=== PATIENT | male | born 1945 | race Caucasian/White ===

== ENCOUNTER 2017-06-26 14:52 | Inpatient (IN) | payer MEDICARE ==
[~2017-06-26] VITALS: Ht 177.8 cm; Wt 89.1 kg
--- NOTE | ~2017-06-26 | PR ---
[place], [place] PROGRESS NOTE NAME: CATALINA RUIZ UNIT #: [id number] ROOM: 521 DOCTOR: AMRIT FERRERA MD BIRTHDATE: [birth year] DOS: 07/03/2017 REASON FOR VISIT: Abnormal EKG and left bundle block office. HISTORY OF PRESENT ILLNESS: The patient denies any chest pain, shortness of breath. He is ambulating without much difficulty. He denies any PND or orthopnea. No chest pain, no palpitation, no dizziness. REVIEW OF SYSTEMS: Review of the 8 systems negative except as mentioned above. RHYTHM STRIPS: The patient is in sinus rhythm. PHYSICAL EXAMINATION: VITAL SIGNS: Blood pressure 120/68, pulse was 88, respiratory rate was 18. GENERAL: The patient was alert, comfortable, in no acute distress. The patient was seen in the stress lab. HEAD AND NECK: Pupils round, equal. No jaundice. NECK: Supple. No distended neck veins, no carotid bruit. CHEST: Symmetrical, nontender. LUNGS: Clear to auscultation bilaterally. HEART: Regular rhythm, no S3. Grade 1/6 systolic murmur. ABDOMEN: Benign, nontender. Bowel sounds normal. EXTREMITIES: Showed trace edema. Distal pulses were palpable. SKIN: Warm and dry. No cyanosis, no clubbing. MEDICATIONS: Reviewed. LABORATORY DATA: Reviewed. IMPRESSION: 1. Intermittent left bundle branch block, stable. 2. Pneumonia with sepsis, stable. 3. Acute renal failure, improving. 4. Nonmorbid obesity. RECOMMENDATIONS: 1. Continue current medications. 2. Lexiscan stress today to rule out ischemia. 3. Further recommendation based on the stress test. [place], [place] PROGRESS NOTE NAME: CATALINA RUIZ UNIT #: [id number] ROOM: 521 DOCTOR: AMRIT FERRERA MD BIRTHDATE: [birth year] AMRIT FERRERA MD CM:PNTRANS [phone] AMRIT FERRERA MD 07/04/17 1055 interface
--- NOTE | ~2017-06-26 | PR ---
[place], [place] PROGRESS NOTE NAME: [facility]UIZ [id number] UNIT #: [id number] ROOM: 521 DOCTOR: PARIS CABRERA MD,ANNE-MARIE BIRTHDATE: [birth year] DOS: 07/02/2017 SUBJECTIVE: The patient noted comfortable at this time, transferred to medical floor from the intensive care unit. This morning was noted fully awake and alert, resting on the chair. He has been getting oxygen supplementation with a high flow nasal cannula. Denies symptoms of chest pain or hemoptysis. The patient was noted with mild edema of lower extremities. There was no pain of the lower extremities. General weakness and fatigue was noted. Ambulation noted limited. Remaining systems were reviewed. They were noted all negative. OBJECTIVE: GENERAL: The patient was comfortably sitting on the chair this morning. Oxygen supplementation 6 liters high flow nasal cannula was used. VITAL SIGNS: The patient showed normal temperature, respiratory rate 20, heart rate 82, blood pressure 140/68. Pulse oxygen saturation of the patient noted as 96% saturation on 6 liter high flow nasal cannula. HEENT: Showed moderate obesity. Head was atraumatic. Eye nonicterus. NECK: Supple. CARDIOVASCULAR: S1, S2 audible. LUNGS: The patient was noted without any wheezing at the present time. Breaths are noted mildly decreased bilaterally. ABDOMEN: Soft, nontender. EXTREMITIES: The patient noted without any acute edema. MUSCULOSKELETAL: Noted without any acute deformities. SKIN: Noted without any lesions or rashes. CENTRAL NEROUS SYSTEM: General weakness noted, but there were no gross focal deficits. LABORATORY DATA: CBC this morning, hemoglobin 12.0, hematocrit 38.0. WBC count normal, platelet count was normal. The BMP of patient this morning, BUN normal, creatinine normal. CO2 of 34. Blood culture of the patient noted no bacterial growths. The culture of the bronchial washing were noted moderate growth of yeast. IMPRESSION: 1. Acute bilateral pneumonia, responding to the treatment very well at this time. 2. Acute severe hypoxic respiratory failure as well. 3. Overall debility secondary to current acute illness. Change in mental status has been resolved. 4. Suspicion of obstructive sleep apnea disorder, current body habitus as well. PLAN OF TREATMENT: Continue antibiotic as directed by the Infectious Disease specialist. De-escalation of antibiotic of the patient will be continued. The patient's Zyvox was discontinued, currently receiving the IV Levaquin and Zosyn. The Levaquin could be discontinued as well based on the current growth results. All other supportive therapy, plan of management and care plan. Additional treatment changes to be done based on the progression of his illness. Physical [place], [place] PROGRESS NOTE NAME: CATALINA RUIZ UNIT #: [id number] ROOM: 521 DOCTOR: ANNE-MARIE GARNER MD BIRTHDATE: [birth year] therapy would be beneficial. NANE-MARIE TOLEDO MD CM:PNLISSY [id number] ANNE-MARIE CABRERA MD 07/02/17 1624 interface
--- NOTE | ~2017-06-26 | PR ---
[place], [place] PROGRESS NOTE NAME: CATALINA RUIZ [facility] #: [id number] UNIT #: [id number] ROOM: 404 DOCTOR: PARIS CABRERA MD,ANNE-MARIE BIRTHDATE: [birth year] DOS: 06/28/2017 SUBJECTIVE: The patient noted without any acute distress at this time, comfortably resting on the bed. Denies any symptoms of acute coughing, chest pain or hemoptysis. Denies symptoms of abdominal pain. Denies symptoms of nausea or vomiting. Denies any headache or diplopia. Remaining systems were reviewed. They were noted all negative. OBJECTIVE: VITAL SIGNS: Normal temperature, respiratory rate 18, heart rate 69, blood pressure 126/65. Intake of 1300, output 200 mL/hour recorded without Solis catheter. Pulse oxygen saturation with 2 liters nasal cannula for the patient was noted as 93% this morning. HEAD, EYES, EARS, NOSE, AND THROAT: Moderate chronic obesity. NECK: Supple, short and obese. CARDIOVASCULAR: S1, S2 audible. LUNGS: Scattered crackles of the lungs was noted. It was noted bilaterally. ABDOMEN: Soft, nontender. EXTREMITIES: Without any acute edema. Chronic obesity. SKIN: No lesions or rashes. MUSCULOSKELETAL SYMPTOM: Without any acute deformities. CENTRAL NEROUS SYSTEM: No focal deficit. Cranial nerves 2-12 intact. LABORATORY DATA: CBC repeated this morning, WBC count 16.9, hemoglobin 13.1, hematocrit 42.1, and platelet count 123,000. The BMP this morning, BUN 26, creatinine normal, glucose 141. Remaining electrolytes normal. Blood culture of this month showed no bacterial growth. Modified barium swallow study was completed yesterday was noted as normal study. The echocardiogram was also done yesterday assessed by Dr. Bob. The finding with the patient was reported as normal left ventricular segmental wall motion, mild concentric LVH, grade 2 diastolic dysfunction. Chest x-ray of the patient that was done this morning, PA lateral as ordered shows bilateral pulmonary infiltration. The patient was noted stable without any worsening. IMPRESSION: 1. Acute multifocal aspiration pneumonia, which has been currently treated with the antibiotic seem to be stable. 2. History of chronic alcohol use. 3. Chronic obesity. 4. Leukocytosis secondary to the current acute active infection. PLAN OF MANAGEMENT: Continuation of the current antibiotics, bronchodilators and oxygen supplementation. Monitor chest x-ray. Continue bronchodilator to help mobilize secretions. Sputum for Gram stain and culture able to ____ could be assessed. Other supportive therapy, plan of management and care plan. Additional treatment changes need to be made for the patient based on the progression of the illness. The chest x-ray repeated the next couple of days again to reassess the assessment of the current progression of the pulmonary infiltration. [place], [place] PROGRESS NOTE NAME: CATALINA RUIZ [id number] UNIT #: [id number] ROOM: [facility] DOCTOR: ANNE-MARIE GARNER MD BIRTHDATE: [birth year] ANNE-MARIE TOLEDO MD CM:PNTRANS [phone] ANNE-MARIE CABRERA MD 06/28/171931 interface
--- NOTE | ~2017-06-26 | PR ---
[place], [place] PROGRESS NOTE NAME: CATALINA RUIZ [facility] #: [id number] UNIT #: [id number] ROOM: 521 DOCTOR: TRAV GOMEZ DO BIRTHDATE: [birth year] DOS: 07/06/2017 SUBJECTIVE: The patient was seen and evaluated today. He is standing with his walker, doing exercises and marching in place. He states he is feeling very well and is not having any respiratory issues. He exhibits no conversational dyspnea or any dyspnea while exerting himself. He is still requiring 7-8 liters via high flow nasal cannula and his pulse ox at the time of these exercises is 88-89%. He denies any chest pain, lightheadedness, dizziness, nausea, vomiting, diarrhea, constipation or any other symptoms at this time. At the time of exam, he himself is still agreeable to SNF placement. OBJECTIVE: VITAL SIGNS: At time of exam, temperature 97.9, pulse 76, respiratory rate 18, blood pressure 123/75 and pulse ox 92% on high flow nasal cannula at 7.5 liters per minute. GENERAL: Alert, awake, in no acute distress, cooperative and responsive. HEAD: Normocephalic, atraumatic. EYES: No lesions. No ulcerations. Nonicteric. No drainage. ENT: No lesions. No scars. No masses. Nares patent. Oropharynx clear. Oral mucosa moist. NECK: Without lesions, without masses. No ulcerations. Trachea midline. LUNGS: No respiratory distress. No dyspnea on exertion. No shortness of breath. No conversational dyspnea. Lung sounds clear with no wheezing, no rhonchi, no rales appreciated today. Slightly diminished in the left lower lobe. CARDIAC: Regular rate and rhythm. No gallop. No murmur. No edema in lower extremities. ABDOMEN: Soft, positive bowel sounds, nontender, nondistended. No organomegaly appreciated. EXTREMITIES: No clubbing. No cyanosis. No erythema. No edema. NEUROLOGIC: Grossly intact without focal neuro deficit. Sensation grossly intact. Ambulates with assistance of a walker. PSYCHIATRIC: Exhibits normal mood, normal affect. Fair Judgment and insight. Fair historian. SKIN: Warm and dry. No rash. No ulceration. No induration. No nodules. No tightening. Healing stage I decubital ulcer noted to the coccyx with bandage clean, dry and intact. LABORATORY AND DIAGNOSTIC DATA: A chest x-ray taken yesterday morning shows COPD and left lower lobe pneumonia. IMPRESSION: 1. Resolving pneumonia. 2. Improving acute severe hypoxic respiratory failure, status post intubation and mechanical ventilation with liberation from mechanical ventilation. 3. Overall physical debility. 4. Acute renal failure, resolved at this time. 5. Chronic obstructive pulmonary disease. 6. Essential hypertension. 7. Alcohol abuse. [place], [place] PROGRESS NOTE NAME: CATALINA RUIZ UNIT #: [id number] ROOM: 521 DOCTOR: TRAV GOMEZ DO BIRTHDATE: [birth year] PLAN OF TREATMENT: Continue to titrate oxygen requirements as tolerated. The patient was still agreeable with SNF placement at the time of exam; however, his family is less convinced and wants to take him home. However, Dr. Toledo spoke with the patient's daughter and explained to her that it is not safe for the patient to return home at this time as he is still requiring high quantities of high flow oxygen via nasal cannula and still has a resolving pneumonia. We will continue the use of IV Levaquin for the resolving pneumonia as well as DuoNeb breathing treatment and other respiratory medications. The option has also been brought by family of possible transfer of the patient to a different facility in [place], so he can be closer to them and Dr. Toledo is in agreement with this option if the family is insistent upon it. TRAV GOMEZ DO ANNE-MARIE TOLEDO MD CM:LENY [phone] [id number] TRAV GOMEZ DO 07/06/172002 interface
--- NOTE | ~2017-06-26 | PR ---
[place], [place] PROGRESS NOTE NAME: CATALINA RUIZ [facility] #: [id number] UNIT #: [id number] ROOM: [place] [address] DOCTOR: PARIS CABRERA MD,ANNE-MARIE BIRTHDATE: [birth year] DOS: 06/30/2017 SUBJECTIVE: The patient was seen and examined in 06/30/2017 in the Intensive Care Unit. He has been tolerating the BiPAP since last night, which has been continued. He was getting oxygen supplementation other time. The temperature noted elevated at 100.5-degree Fahrenheit to normal temperature. The patient has not been noted evidence of tachycardia, did not show any signs of hypotension requiring any vasopressor treatment. The oral intake for the patient was noted somewhat limited for the patient. He has been continued on intravenous antibiotic with continuous infusion of intravenous Zosyn and doxycycline intravenously started as well. The patient responded to vocal commands, opening his eyes. Two of the daughters were present with the patient at this time of assessment. The patient is n.p.o. past midnight for bronchoscopy was planned to be done today. OBJECTIVE: VITAL SIGNS: The patient shows a highest temperature of 100.5 degree Fahrenheit, normal temperature otherwise, respiratory rate of highest of 30, lowest of 22. The heart rate ranged between 60-70 and blood pressure 145/80-132/66. Intake is 1077 mL, output 726 mL. Pulse ox saturation BiPAP 60%, 97% saturation with a Venturi mask 90% saturation, 50% oxygen. HEENT: Chronic obesity. NECK: Supple. Head was atraumatic. CARDIOVASCULAR: S1, S2 audible. LUNGS: The patient was noted with moderate decreased breath sounds, scattered crackles, no wheezing. ABDOMEN: Soft. Moderate obesity. Bowel sounds present. EXTREMITIES: Noted with obesity without any edema. SKIN: Visible skin, no lesions or rashes. MUSCULOSKELETAL SYMPTOMS: Without acute deformities. CENTRAL NERVOUS SYSTEM: Change was still noted intermittently. LABORATORY DATA: Arterial blood gas yesterday, pH of 7.33, pCO2 of 58.9, pO2 of 83 and 60% oxygen, BiPAP setting of 16/10. CMP this morning, glucose 122, BUN normal, creatinine was normal. CO2 34, albumin 2.3, total protein 5.8. CBC this morning, WBC count 13.2, hemoglobin 12.7, hematocrit 39.9, platelet count 120,000. Chest x-ray of the patient that was done this morning shows evidence of infiltration noted for this patient in the left lower lobe with increased pulmonary venous congestion markings. IMPRESSION: 1. The patient has been noted with current acute respiratory failure for this patient secondary to acute pneumonia with hospital-associated infection. 2. Mild anemia. 3. History of long-term alcohol use for the patient. Possible withdrawal cannot be completely considered rather excluded. 4. Pulmonary venous congestion may be related to fluid overload as well. There was no finding of congestive heart failure. 5. History of chronic obesity as well. 6. Mild thrombocytopenia. [place], [place] PROGRESS NOTE NAME: CATALINA RUIZ UNIT #: [id number] ROOM: [place] [address] DOCTOR: ANNE-MARIE GARNER MD BIRTHDATE: [birth year] PLAN OF THERAPY: Continuation of the antibiotics for the patient at the present time. The patient's antibiotic has been changed by addition of the Levaquin and the patient was also started on Zyvox by the Infectious disease specialist. The patient will be continued on current antibiotic, proceed with bronchoscopy for the patient for more accurate culture assessment to deescalate the antibiotics. Continue the BiPAP. One dose of Lasix will be given 20 mg intravenously to help improve the pulmonary venous congestion. Close monitoring to be continued. The patient does not require mechanical ventilation at this time. Nutrition support will be given. The patient started Librium to prevent alcohol withdrawal or delirium tremens if it occurs. Usual care. All other supportive therapy, plan of management and care plan. Additional treatment changes to be made for this patient after bronchoscopy if necessary, overall assessment, management has been discussed in detail with the patient's daughters at the bedside. Continuation in the meantime, other supportive therapy, plan of management. Repeat another chest x-ray in the morning. DVT prophylaxis with the SCDs. The patient was also noted with mild thrombocytopenia most likely related to current sepsis. The patient will be monitored closely. No changes at this time will be made. Total time in pulmonary critical care evaluation and management of the patient excluding any billable procedures is 35 minutes. ANNE-MARIE TOLEDO MD CM:PNTRANS [phone] ANNE-MARIE CABRERA MD 06/30/17 1756 interface
--- NOTE | ~2017-06-26 | PR ---
[place], [place] PROGRESS NOTE NAME: CATALINA RUIZ [facility] #: [id number] UNIT #: [id number] ROOM: 521 DOCTOR: PARIS CABRERA MD,ANNE-MARIE BIRTHDATE: [birth year] DOS: 07/03/2017 SUBJECTIVE: The patient was noted comfortable at this time without any acute distress. He has been sitting on the chair this morning at the time of the assessment. He has not been noted with symptoms of acute shortness of breath. The coughing has been gradually subsiding. There were no symptoms of chest pain or any abdominal pain. The patient denies symptoms of nausea, vomiting, diarrhea, dysphagia, hematemesis, melena, dizziness, or headache. Reported generalized weakness and fatigue. Remaining systems were reviewed and noted as negative. OBJECTIVE: VITAL SIGNS: For the patient, noted as temperature normal, respiratory rate 22, heart rate 64, blood pressure 151/73. Pulse oxygen saturation of the patient noted as 98% with the BiPAP and 97% with 8 liters high-flow nasal cannula. HEENT: Examination shows head was atraumatic. Eyes nonicterus. NECK: Supple. CARDIOVASCULAR: S1, S2 are audible. LUNGS: The patient was noted without any wheezing or crackles at this time. Breaths are noted to be decreased in the lower portion of the lungs. ABDOMEN: Soft, nontender. EXTREMITIES: The patient noted without any acute edema. SKIN: Visible skin noted without lesions or rashes. MUSCULOSKELETAL: Noted without any acute deformities. CENTRAL NERVOUS SYSTEM: No focal deficit. Cranial nerves 2-12 intact. LABORATORY DATA: Adenovirus on this patient were noted with elevated titers. Mycoplasma IgM were noted as normal. IgE mildly elevated consistent with previous old infection. CMP of the patient that was done this morning shows carbon dioxide 36. Albumin of 2.0. CBC of the patient this morning was noted as normal WBC count and platelet count, hemoglobin 12.3, hematocrit 39.2. IMPRESSION: 1. The patient who has been currently noted with resolving acute pneumonia clinically and radiologically as well with improving acute respiratory failure, still requires the oxygen supplementation with high flow nasal cannula and BiPAP use as well. 2. Severe debility secondary to current infection. 3. Adenovirus isolation from the nasopharyngeal washing of the patient was also noted. PLAN OF TREATMENT: The patient will be continued with oxygen supplementation, physical therapy and occupation therapy as well. Possible consideration should be given for either long-term acute care facility or fci facility consultation upon discharge. I will be ordering a chest x-ray of the patient, PA and lateral view of the patient to reassess the progression of the pneumonia. Other supportive therapy, plan and management to be continued on the patient as previously as well. Usual treatment, all other plan of therapy and treatments. [place], [place] PROGRESS NOTE NAME: JOSEPHCATALINA Myrna [facility] #: [id number] UNIT #: [id number] ROOM: 521 DOCTOR: ANNE-MARIE GARNER MD BIRTHDATE: [birth year] ANNE-MARIE TOLEDO MD CM:PNTRANS [phone] ANNE-MARIE CABRERA MD 07/04/17222 interface
--- NOTE | ~2017-06-26 | PR ---
[place], [place] PROGRESS NOTE NAME: CATALINA RUIZ [facility] #: [id number] UNIT #: [id number] ROOM: 521 DOCTOR: PARIS CABRERA MD,ANNE-MARIE BIRTHDATE: [birth year] DOS: 07/04/2017 SUBJECTIVE: The patient was noted at this time using the BiPAP, still requires high flow of oxygen supplementation nasal cannula. The patient has not been reporting any symptoms of chest pain or hemoptysis. The mental status has been noted controlled for the patient as well. He had not been noted any symptoms of abdominal pain. There was no edema or pain of the lower extremities were reported. Remaining system review was noted as all negative. OBJECTIVE: VITAL SIGNS: The patient was recorded as temperature normal, respiratory rate 18-20, heart rate of 79-58, blood pressure 150/83 to 155/79. The pulse oxygen saturation on high flow nasal cannula for the patient 92% BiPAP, 97% with 50% oxygen supplementation. The patient was comfortably resting on the bed at this time. HEENT: Chronic obesity. NECK: Supple. CARDIOVASCULAR: S1, S2 audible. LUNGS: Noted general reduction in the breath sounds without wheeze or crackles. ABDOMEN: Soft and obese. EXTREMITIES: The patient noted with chronic obesity, mild edema. SKIN: No lesion or rash. MUSCULOSKELETAL SYMPTOMS: Without any gross deformities. LABORATORY DATA: The patient's CMP today, normal BUN and creatinine, potassium 3.4. Blood culture from the 29th of this month showed no bacterial growth. CBC of the patient on 07/04/2017, hemoglobin 12.5. WBC count normal. Platelet count was normal. IMPRESSION: 1. Stable respiratory status. The patient noted at this time with persistent severe acute hypoxic respiratory failure with acute pneumonia, very slow improvement. The patient still noted ongoing respiratory failure. The patient requires use of the BiPAP and others. 2. The patient with chronic obesity as well. 3. Suspicion of sleep apnea disorder as well. PLAN OF TREATMENT: The patient would be continued at this time with current treatment plan. He was recommended about assessment for long-term acute care facility, snf facility, but the patient refusing to do so. At this time, the patient was not noted fit for discharge either to snf facility or to the home setting. Continued treatment would be needed. [place], [place] PROGRESS NOTE NAME: CATALINA RUIZ UNIT #: [id number] ROOM: 521 DOCTOR: ANNE-MARIE GARNER MD BIRTHDATE: [birth year] ANNE-MARIE TOLEDO MD CM:PNLISSY [phone] ANNE-MARIE CABRERA MD 07/04/171932 interface
--- NOTE | ~2017-06-26 | PR ---
[place], [place] PROGRESS NOTE NAME: CATALINA RUIZ [facility] #: [id number] UNIT #: [id number] ROOM: 521 DOCTOR: CHARLOTTE CRAIG MD BIRTHDATE: [birth year] DOS: 07/10/2017 SUBJECTIVE: The patient was seen at his bedside today 07/10/2017 with family in attendance. He feels well and is very anxious to go home. Unfortunately, he remains on a diltiazem drip. When he is active, his heart rate will go up into the 130s. He seems to do best right after he receives carvedilol by mouth. He denies any chest pain and is able to get around without oxygen. PHYSICAL EXAMINATION: VITAL SIGNS: Today, his pulse is between 90 and 130 and irregularly irregular. Blood pressure is 107/60. He is febrile. NECK: Supple. He has no jugular distention. Carotids are full. LUNGS: Respirations are unlabored. Chest is clear to auscultation and percussion. He has no presacral edema. HEART: Has an irregularly irregular rhythm without murmurs or gallops. ABDOMEN: Benign. EXTREMITIES: Showed no edema. Peripheral pulses are palpable in the feet. I will adjust his carvedilol upwards to try to get a better control on his heart rate response to atrial fibrillation. The patient will continue Xarelto for stroke prophylaxis. I thank the hospitalist physicians for asking our advice regarding his care. CHARLOTTE CRAIG MD CM:PNTRANS [id number] CHARLOTTE CRAIG MD 07/10/17 1636 interface
--- NOTE | ~2017-06-26 | PR ---
[place], [place] PROGRESS NOTE NAME: CATALINA RUIZ UNIT #: [id number] ROOM: 521 DOCTOR: CHARLOTTE CRAIG MD BIRTHDATE: [birth year] DOS: 07/12/2017 SUBJECTIVE: The patient was seen today at his bedside on 07/12/2017. He is feeling much better and is anxious to go home. Review of his monitor shows that his heart rate is relatively well controlled, although he still does have an increase in heart rate when he exerts himself. PHYSICAL EXAMINATION: VITAL SIGNS: His pulse is 95 and irregularly irregular. Blood pressure is 110/62. He is afebrile. NECK: Supple. He has no jugular distention. Carotids are full. LUNGS: Respirations are unlabored. His chest is clear. HEART: Has an irregularly irregular rhythm without murmurs or gallops. ABDOMEN: Benign. EXTREMITIES: Shows trace edema bilaterally. LABORATORY DATA: Hemoglobin is 12.9, hematocrit 39.0. There are 6400 white cells and 260,000 platelets. Sodium 139, potassium 4.1, chloride 104, CO2 27, BUN 11, and creatinine 0.83. IMPRESSION: 1. Bilateral pneumonia, resolving. 2. Hypertension, well controlled. 3. Newly documented atrial fibrillation with rapid ventricular response. 4. History of alcohol abuse prior to admission. 5. Protein and calorie malnutrition. 6. Chronic diastolic heart failure. PLAN: The patient appears to be hemodynamically stable. From my perspective, he could be discharged to home on anticoagulation therapy along with beta blockers for heart rate control. We will follow up with him in the office in several weeks. If he remains in atrial fibrillation and seems to be limited by his arrhythmia, we can discuss with him the possibility of an elective cardioversion at that time. I thank the hospitalist physicians for asking our advice regarding his care. [place], [place] PROGRESS NOTE NAME: CATALINA RUIZ UNIT #: [id number] ROOM: 521 DOCTOR: CHARLOTTE CRAIG MD BIRTHDATE: [birth year] CHARLOTTE CRAIG MD CM:PNTRANS [id number] CHARLOTTE CRAIG MD 07/12/17 1615 interface
--- NOTE | ~2017-06-26 | PR ---
[place], [place] PROGRESS NOTE NAME: CATALINA RUIZ [facility] #: [id number] UNIT #: [id number] ROOM: [place] [address] DOCTOR: PARIS CABRERA MD,ANNE-MARIE BIRTHDATE: [birth year] DOS: 06/29/2017 SUBJECTIVE: The patient was treated on the medical floor. The patient noted with increased hypoxia, change in mental status. He has arterial blood gas, which was ordered by the medical attending. The arterial blood gas was done, which shows worsening hypoxia and also interval development of hypercapnia. The patient was transferred to the Intensive Care Unit. He has not been noted any findings of hypotension or tachycardia. The patient was started on oxygen supplementation high flow with a Venturi mask. The Venturi mask 50% resulted in improvement in oxygen saturation. Mental status has been noted and confusion at times as well. He has not been able to give me any history by himself at this time because of the current change in mental status. The patient had a CT of the chest already completed this morning, which was ordered by the primary care attending. OBJECTIVE: VITAL SIGNS: Reviewed and was noted temperature 100.5 degree Fahrenheit to 97.6 degree Fahrenheit, respiratory rate 20-24, heart rate 88-74, blood pressure 108/59-103/60. Pulse oxygen saturation on 50% Venturi mask was noted as 95%. HEENT: Examination shows head was atraumatic. Eyes nonicterus. Moderate obesity. NECK: Short and obese. CARDIOVASCULAR: S1, S2 audible. LUNGS: Scattered crackles without wheezing. The breaths are noted mildly diminished bilaterally. ABDOMEN: Noted soft, moderate obesity, bowel sounds present. CENTRAL NERVOUS SYSTEM: Noted changes in mental status. Further examination could not be performed. VISIBLE SKIN: No lesions or rashes. MUSCULOSKELETAL SYMPTOMS: Without any acute deformities. LABORATORY DATA: CBC; WBC count 10.5, hemoglobin 15.2, hematocrit normal, platelet count normal. CMP this morning; glucose 120, BUN 23, creatinine was normal, CO2 34. AST 44. Albumin 2.9. Arterial blood gas; pH of 7.28, pCO2 of 66, pO2 56.8 on 50% Venturi mask. PT/PTT done this morning was noted as normal. Chest x-ray shows patchy infiltration noted in the lungs in the right side and some in the left lower lobe as any finding. The CT of the chest does not show any evidence of pulmonary embolism. CT scan of the chest was personally reviewed shows evidence of infiltration noted in the lung on the right side, noted partial reduction, increased infiltration, consolidation noted in the right lower lobe. IMPRESSION: 1. The patient with acute superimposed pneumonia, healthcare-associated infection to be considered, most likely secondary to recurrent aspiration is very likely the cause. 2. Change in mental status secondary to current, acute early sepsis as well. 3. The patient with past history of alcohol use does not seem to have any withdrawal from the alcohol and delirium because of that. 4. Moderate obesity. [place], [place] PROGRESS NOTE NAME: CATALINA RUIZ UNIT #: [id number] ROOM: [place] [address] DOCTOR: ANNE-MARIE GARNER MD BIRTHDATE: [birth year] 5. Previous history of nicotine use as well. PLAN OF MANAGEMENT: The patient has been ordered cultures of the blood to be done peripherally. He will be started on continuous intravenous infusion of the IV Zosyn. The patient was also ordered the doxycycline 100 mg b.i.d. for coverage of the healthcare-associated pneumonia. The patient's arterial blood gas will be monitored. The BiPAP will be tried at settings of 16/10 for this patient. If tolerated, to be continued in case of worsening or deterioration of respiratory status. The patient will require intubation and mechanical ventilation. The bronchoscopy will be planned to be done tomorrow morning for more accurate culture assessment at that time. In the meantime, continue other supportive plan of management of the patient as in progress, usual care, other supportive therapy and care as well. Additional treatment changes to be made for the patient based on the progression of the illness. DVT prophylaxis. Other supportive therapy, plan of management and care plan. Usual medical management and other therapies. The patient has been refusing the subcutaneous Lovenox injection. He will be given the HUY hose with SCDs for DVT mechanical prophylaxis. Total time for pulmonary critical evaluation and management for this patient assessment was 38 minutes. ANNE-MARIE TOLEDO MD CM:PNTRANS [phone] ANNE-MARIE CABRERA MD 06/30/17 0341 interface
--- NOTE | ~2017-06-26 | ST ---
[place], [place] EXERCISE STRESS TEST REPORT [id number] UN[facility] #: [id number] ROOM: 521 DOCTOR: MAISHA WILSON,AMRIT BIRTHDATE: [birth year] DOS: 07/03/2017 REASON FOR TEST: Abnormal EKG and left bundle branch block. PHYSICAL EXAMINATION: NECK: Supple. LUNGS: Clear anteriorly. HEART: Regular rhythm. PROTOCOL: Lexiscan protocol. Maximum heart rate was 92, peak blood pressure 142/78. SYMPTOMS: The patient was chest pain free. ELECTROCARDIOGRAM: Resting EKG was sinus rhythm. Stress EKG showed no ischemia, no arrhythmias. CONCLUSION: Clinically, the patient was chest pain free and there no ischemia on the EKG. The patient received 0.4 mg of Lexiscan. AMRIT FERRERA MD CM:STRESS:EXERCISE STRESS TEST REPORT [id number] AMRIT FERRERA MD
--- NOTE | ~2017-06-26 | PR ---
[place], [place] PROGRESS NOTE NAME: CATALINA RUIZ [facility] #: [id number] UNIT #: [id number] ROOM: 521 DOCTOR: PARIS CABRERA MD,ANNE-MARIE BIRTHDATE: [birth year] DOS: 07/01/2017 PULMONARY FOLLOWUP SUBJECTIVE: The patient noted comfortable at this time, noted fully awake and alert, cooperative with the examination. Speak with the family members. The bronchoscopy was completed yesterday successfully without any difficulty. After bronchoscopy ____ the patient has improved significantly as per daughters of the patient. He has not been noted any chest pain at this time. The coughing has been noted with some sputum expectoration. There was no wheezing reported by the patient. There were symptoms of nausea, vomiting, diarrhea, dizziness. Remaining systems were reviewed, they were noted all negative. OBJECTIVE: VITAL SIGNS: For the temperature remains normal, respiratory rate 22, heart rate 63, blood pressure 94/55-130/83. The pulse oxygen saturation for the patient on the BiPAP 60%, 96% saturation, high flow nasal cannula was 91% saturation this morning. HEENT: Moderate obesity. Head was atraumatic. Eyes nonicterus. NECK: Supple. CARDIOVASCULAR: S1, S2 audible. LUNGS: Basilar crackles still noted. ABDOMEN: Soft, nontender and obese. EXTREMITIES: The patient was noted without any acute edema. MUSCULOSKELETAL SYMPTOMS: Without any acute deformities. SKIN: No lesions or rashes. CENTRAL NERVOUS SYSTEM: Overall weakness, but there were no focal neurologic deficits noted. Normal speech as well. LABORATORY DATA: CMP this morning, BUN normal, creatinine normal, glucose 110, CO2 3.6. Total protein of 6.1, albumin 2.3. The CBC this morning, hemoglobin 12.9, hematocrit 41.2, platelet count 122,000. Chest x-ray of the patient 1 view, which was done today was reviewed. Infiltration noted in the lungs bilaterally. IMPRESSION: 1. Acute pneumonia for this patient at this time. The Gram stain of the bronchial washing shows many white blood cells, moderate yeast and no bacterial growth noted for this patient at this time from the cultures. The blood cultures also remains negative. 2. Resolving acute severe hypoxic respiratory failure with hypercapnia as well. 3. Improving acute exacerbation of chronic obstructive pulmonary disease. 4. Mild thrombocytopenia related to his current acute sepsis. 5. Chronic obesity as well. 6. Improvement in mental status was continued. PLAN OF TREATMENT: Continue monitoring the culture for patient of the bronchial washing as well as of the blood. The patient could be transferred from the intensive care unit to the other floor. Adjustment antibiotic deescalation [place], [place] PROGRESS NOTE NAME: CATALINA RUIZ UNIT #: [id number] ROOM: 521 DOCTOR: PARIS CABRERA MD,ANNE-MARIE BIRTHDATE: [birth year] should be done for this patient after the final culture results availability. Other plan of management. The patient to be continued as in progress. Usual care. All other supportive plan of care and management. Additional treatment changes will be made for the patient based on progression of the illness. Continue optimizing nutrition support. ANNE-MRAIE TOLEDO MD CM:PNTRANS [phone] ANNE-MARIE CABRERA MD 07/02/17 0125 interface
--- NOTE | ~2017-06-26 | PR ---
[place], [place] PROGRESS NOTE NAME: CATALINA RUIZ [facility] #: [id number] UNIT #: [id number] ROOM: 521 DOCTOR: TRAV GOMEZ DO BIRTHDATE: [birth year] DOS: 07/07/2017 SUBJECTIVE: The patient seen and evaluated today. He is sitting in his bedside chair with a family member present, he states he is feeling very well and not in any respiratory distress at this time. He states he has been working well with physical therapy and occupational therapy and is not getting short of breath while exercising. He is still requiring 5-8 liters via high flow nasal cannula and his pulse oxygen saturations are staying in the mid to low 90s. He denies any chest pain, lightheadedness, dizziness, nausea, vomiting, diarrhea, constipation and states he is eating well. OBJECTIVE: VITAL SIGNS: At the time of exam, temperature 97.4, pulse 77, respirations 21, blood pressure 136/66, pulse ox 93% on 5 liters via nasal cannula. GENERAL: Alert, awake, no acute distress, cooperative and responsive. HEAD: Normocephalic, atraumatic. EYES: No lesion, no ulceration, nonicteric, no drainage. ENT: No lesion, no scars, no masses. Nares patent. Oropharynx clear. Oral mucosa moist. NECK: Without lesions, without masses. No ulcerations. Trachea is midline. LUNGS: No respiratory distress. No wheezing, no rales noted, slight diminished rhonchorous sounds in the left lower lobe. CARDIAC: Regular rate and rhythm. No gallop, no murmur. No edema in lower extremities. ABDOMEN: Soft, nontender, nondistended, positive bowel sounds. EXTREMITIES: No clubbing, no cyanosis, no erythema, no edema. NEUROLOGIC: Grossly intact without focal neuro deficits. Sensation grossly intact. PSYCHIATRIC: Exhibits normal mood, normal affect. Fair judgment and insight. Good recent memory. SKIN: Warm and dry. No rash, no ulceration, no induration. There is a stage 1 decubitus ulcer noted to the coccyx. Bandage in place, clean, dry and intact. LABORATORY AND DIAGNOSTIC DATA: Completed gram stain of bronchial washing culture shows many white blood cells and moderate budding yeast, but no bacterial elements. IMPRESSION: 1. Resolving pneumonia, bacterial. 2. Improving acute severe hypoxic respiratory failure, status post intubation and mechanical ventilation with liberation from mechanical ventilator. 3. Overall physical debility. 4. Chronic obstructive pulmonary disease. 5. Acute renal failure, resolved. 6. Alcohol abuse. 7. Essential hypertension. PLAN OF TREATMENT: The patient is cleared from pulmonary standpoint to be discharged to a shelter facility or LTAC for continued treatment of his resolving pneumonia. An ethics consult was placed by the primary team as the [place], [place] PROGRESS NOTE NAME: CATALINA RUIZ UNIT #: [id number] ROOM: 521 DOCTOR: TRAV GOMEZ DO BIRTHDATE: [birth year] patient's family had been refusing continued care in SNF or LTAC facilities. It had been explained to the patient's family several times that the patient is unsafe to be discharged home with the amount of oxygen he is requiring and the amount of care he will need to resolve his pneumonia. The patient is completely competent and able to make his own medical decisions and he is agreeable to shelter facility placement. Upon discharge whenever a shelter facility bed is available, recommend continuing oral Levaquin 750 mg for 7 more days upon discharge. TRAV GOMEZ DO ANNE-MARIE TOLEDO MD CM:LENY [phone] TRAV GOMEZ DO 07/07/17 1849 interface
--- NOTE | ~2017-06-26 | PR ---
[place], [place] PROGRESS NOTE [id number] UN[facility] #: [id number] ROOM: 521 DOCTOR: EMMANUEL EASTON MD BIRTHDATE: [birth year] DOS: 07/03/2017 SUBJECTIVE: The patient is comfortably sitting in the chair. Denies any fever, chills. No shortness of breath, occasional dry cough. No chest pain. Today, he had a stress test done, awaiting the results. REVIEW OF SYSTEMS: Ten point review of system is done. Pertinent negative and positives included in HPI, others are noncontributory. PHYSICAL EXAMINATION: VITAL SIGNS: Temperature 97.9, pulse rate 75, respiratory rate 18, blood pressure 111/53, oxygen saturation 92% on room air. HEENT: Atraumatic, normocephalic. PERRLA. EOMI. RESPIRATORY: Air entry bilaterally equal. Occasional expiratory wheezing, right lung more than the left. Right lower lung crackles at the base, minimal. CARDIOVASCULAR: S1, S2 normal, no murmurs, rubs or gallops. ABDOMEN: Soft, nontender, nondistended. Bowel sounds present all 4 quadrants. EXTREMITIES: No pedal edema. NEUROLOGIC: Grossly intact. LABORATORY DATA AND IMAGING: Noted. ASSESSMENT AND PLAN: 1. Atypical pneumonia are viral illness. At this time, continue levofloxacin to complete 2 weeks' course of antibiotics. Discontinue Zosyn. 2. The patient had a left bundle branch block, underwent a Lexiscan stress test, following up with Cardiology. From an infectious disease point, okay to be discharged on Levaquin 750 daily for 1 more week. Thank you for the consultation, please call if you have any questions. Kami Easton MD CM:PNTRANS [phone] EMMANUEL EASTON MD 07/04/17 0948 interface
--- NOTE | ~2017-06-26 | PR ---
[place], [place] PROGRESS NOTE NAME: CATALINA RUIZ [facility] #: [id number] UNIT #: [id number] ROOM: 521 DOCTOR: PARIS CABRERA MD,ANNE-MARIE BIRTHDATE: [birth year] DOS: 07/07/2017 SUBJECTIVE: The patient was independently seen and examined with [id number] encounter, history was confirmed, physical examination performed, labs reviewed, assessment and management of the patient for today's visit, was personally completed, the note done by the spanish medical interpreter and approved as well. The patient noted comfortable, still requires oxygen supplementation 8 liters nasal cannula difficult to be titrated down lower oxygen. The patient denies symptoms of chest pain or cough. Shortness of breath has been improving. OBJECTIVE: VITAL SIGNS: For the patient reported as normal temperature, respiratory rate 22, heart rate 71, blood pressure 132/56, pulse oxygen saturation on 5 to 8 L nasal cannula ranges between 93-98% saturation. HEENT: Moderate obesity. NECK: Supple. CARDIOVASCULAR: S1, S2 audible. LUNGS: Noted decreased breath sounds in the lungs bilaterally. There were no wheezing, no crackles. ABDOMEN: Soft, nontender. EXTREMITIES: Without any acute edema. IMPRESSION: The patient has stable respiratory status, resolving acute pneumonia for this patient with current medical management. A slow improvement for the patient was noted in the severe hypoxic respiratory failure, did require the oxygen between 5-8 liters high flow nasal cannula at rest. PLAN OF MANAGEMENT: The patient will be transferred to long term facility upon acceptance, has agreed upon by the patient's family members. In the meantime, continue the patient's current therapy, plan of care as in progress. Other additional treatment changes to be made of the patient based on progression of the illness. ANNE-MARIE TOLEDO MD CM:PNTRANS [phone] ANNE-MARIE CABRERA MD 07/08/17135 interface
--- NOTE | ~2017-06-26 | PROC NOTE ---
[place], [place] PROCEDURE NOTE NAME: CATALINA RUIZ UNIT #: [id number] ROOM: 404 DOCTOR: MARILEE DE OLIVEIRA BIRTHDATE: [birth year] DOS: 06/27/2017 MODIFIED BARIUM SWALLOW LOCATION: [facility], room 404, bed 1. ORDERING PHYSICIAN: Dr. Camp. RADIOLOGIST: Dr. Coyle. BACKGROUND INFORMATION: The patient a 71-year-old male was seen for modified barium swallow. This test was ordered to rule out aspiration due to pneumonia. Further medical history includes ARF, COPD, ethanol abuse, HTN, leukocytosis, sepsis and tachycardia. The patient has been experiencing increased cough, congestion and shortness of breath, but denied any recent swallowing difficulties. He currently receives a regular diet and thin liquid. For today's assessment, he was alert and able to follow all commands. He was receiving oxygen via nasal cannula. Oral peripheral examination revealed edentulous status. Lingual, labial and buccal skills were within normal limits in terms of strength, range of motion and coordination. METHODS AND MATERIALS USED FOR THE EXAM: The patient was positioned in the lateral plane and exam was viewed under fluoroscopy. The patient was presented with a variety of consistencies to assess swallowing skills including applesauce mixed with barium presented in half teaspoon amounts, barium-coated cookie and sandwich taken in bite size pieces and thin liquid barium taken by cup. The patient took the cup and swallowed in his regular sip size amounts. ORAL PHASE: The patient achieved adequate labial seal around cup and spoon with no anterior loss. Bolus formation was adequate. Oral transit with all consistencies was slow, but functional. Tongue to palate contact was within normal limits. Tongue retraction was within normal limits. Velar functioning was within normal limits with no nasal regurgitation. PHARYNGEAL PHASE: Unremarkable. ESOPHAGEAL PHASE: This phase of the swallow was not formally assessed during this exam. IMPRESSIONS AND RECOMMENDATIONS: Based upon assessment results, this 71-year-old patient presents with oral and pharyngeal swallowing skills that are within functional limits. It is recommended that he remain on present diet of regular food and thin liquid with use of universal safe swallow precautions. No followup treatment is warranted at this time. Results and recommendations were shared with the patient and his nurse and they verbalized understanding. Thank you very much for this referral. Should you have any questions regarding this patient, please contact the speech pathologist at [phone]. [place], [place] PROCEDURE NOTE NAME: CATALINA RUIZ UNIT #: [id number] ROOM: 404 DOCTOR: MARILEE DE OLIVEIRA BIRTHDATE: [birth year] MARILEE DE OLIVEIRA CM:PROCNOTE:PROCEDURE NOTE [phone] MARILEE DE OLIVEIRA
--- NOTE | ~2017-06-26 | EKG ---
[place], [place] ELECTROCARDIOGRAM REPORT NAME: CATALINA RUIZ UNIT #: [id number] ROOM: [place] [address] DOCTOR: PARIS CABRERA MD,ANNE-MARIE BIRTHDATE: [birth year] DOS: 06/29/2017 TIME: 11:13 a.m. FINDINGS: Show heart rate of 77 beats per minute as a normal sinus rhythm. Nonspecific ST-T changes noted in the chest leads. ANNE-MARIE TOLEDO MD CM:EKGRPT:ELECTROCARDIOGRAM REPORT [id number] ANNE-MARIE CABRERA MD
--- NOTE | ~2017-06-26 | PR ---
[place], [place] PROGRESS NOTE NAME: CATALINA RUIZ UNIT #: [id number] ROOM: 521 DOCTOR: AMRIT FERRERA MD BIRTHDATE: [birth year] DOS: 07/01/2017 REASON FOR VISIT: Left bundle-branch block and abnormal EKG. SUBJECTIVE: The patient is feeling better. Denies any fever and chills. No chest pain. No palpitation. No dizziness. No PND or orthopnea. No nausea, vomiting, diarrhea. REVIEW OF SYSTEMS: Review of the 10 systems is negative except as mentioned above. LABORATORY DATA: Rhythm strips, the patient is in sinus rhythm. OBJECTIVE: VITAL SIGNS: Blood pressure 94/55, pulse was 63, respiratory rate was 20, weight 89.2 kilos with BMI of 28. GENERAL: Alert, comfortable, in no acute distress. HEENT: Pupils are round and equal. No jaundice. Tongue was moist and pharynx was clear. NECK: Supple. No distended neck veins. No carotid bruit. CHEST: Symmetrical, nontender. LUNGS: A few scattered rhonchi, diminished at bases. HEART: Regular rhythm. No S3. Grade 1/6 systolic murmur. ABDOMEN: Benign, nontender. Bowel sounds normal. EXTREMITIES: Showed no edema. Distal pulses are palpable. SKIN: Warm and dry. No cyanosis. No clubbing. NEUROLOGIC: The patient is alert, oriented. No focal neurologic deficit. MEDICATIONS: Reviewed. ALLERGIES: Reviewed. IMPRESSION: 1. Intermittent left bundle-branch block. 2. Pneumonia. 3. Sepsis. 4. Acute kidney injury. 5. Abnormal EKG with intermittent left bundle-branch block, anterior ST-T changes. 6. Non-morbid obesity. RECOMMENDATIONS: 1. Continue current medication. 2. If he is stable from the pulmonary standpoint, Lexiscan stress test on Monday. 3. Continue to monitor his heart rate and blood pressures. 4. The above treatment plan discussed with the patient and his family members who were at bedside and all questions were answered. [place], [place] PROGRESS NOTE NAME: CATALINA RUIZ UNIT #: [id number] ROOM: 521 DOCTOR: AMRIT FERRERA MD BIRTHDATE: [birth year] AMRIT FERRERA MD CM:PNTRANS [id number] AMRIT FERRERA MD 07/02/17 0250 interface
--- NOTE | ~2017-06-26 | CON ---
[place], [place] REPORT OF CONSULTATION NAME: CATALINA RUIZ [facility] #: [id number] UNIT #: [id number] ROOM: 404 DOCTOR: ANNE-MARIE GARNER MD BIRTHDATE: [birth year] DOS: 06/27/2017 REASON FOR CONSULTATION: Medical assessment and management. The patient's current acute pneumonia, abnormal CT scan of the chest x-ray findings. HISTORY OF PRESENT ILLNESS: This is a 71-year-old white male stated that he came to the hospital as some of his family members were noted as sick for this patient including young children, has a severe flu infection. The patient stated that he started becoming ill for the patient a few days later. He has reported with symptoms of having progressive increased coughing, chest congestion and shortness of breath, which was noted with gradual worsening. He denies any symptoms of wheezing. Denies symptoms of chest pain. Denies symptoms of hemoptysis. He has been noted partial improvement symptom since hospitalization of yesterday. REVIEW OF SYSTEMS: CONSTITUTIONAL SYMPTOMS: Fatigue and tiredness noted without any symptoms of fever or chills. EYES: Denies any burning, redness, or tenderness. Denies any symptoms of diplopia. HEAD, EYES, EARS, NOSE, AND THROAT: Sore throat, hoarseness, otalgia, postnasal drainage or epistaxis. CARDIOVASCULAR: Denies anginal pain, edema, pain, lower extremity palpitation. GASTROINTESTINAL SYMPTOMS: No nausea, vomiting, diarrhea, abdominal pain, hematemesis, melena, hematochezia. Denies symptoms of dysphagia as well as abnormal weight loss history. GENITOURINARY SYMPTOMS: No dysuria, suprapubic pain, hematuria. MUSCULOSKELETAL SYMPTOMS: There were no acute joint pain, redness or tenderness reported. The patient was reported without any deformities or pain or weakness. SKIN: Denies lesions or rashes. CENTRAL NERVOUS SYSTEM: No dizziness, headache, diplopia, syncopal episodes or tingling sensation of the extremities. Remaining systems were reviewed. They were noted all negative. PAST MEDICAL HISTORY: 1. Noted with history of chronic dependence on the alcohol in the form of beer drinking several beers a day including, 10-15. 2. History of past pneumonia treated in 2016. 3. Anemia of chronic disease and possible alcoholism related. PAST SURGICAL HISTORY: Noted tonsillectomy. SOCIAL HISTORY: The patient currently , lives at home. He has four children. He has worked for several years in the ____. He does not have any history of tobacco use. Denies history of alcohol use. History of chronic alcohol use was noted in the form of beer or whiskey. FAMILY HISTORY: The patient's mother at age of 9090 years old from old age. Father at 65 years old, complication black lung. [place], [place] REPORT OF CONSULTATION NAME: CATALINA RUIZ UNIT #: [id number] ROOM: [facility] DO[facility] [birth year] MEDICATIONS: Listed for this patient rather use at this time of admission noted use of Protonix, Mucinex, heparin for DVT prophylaxis, DuoNeb, Coreg, IV Rocephin and Zithromax. ALLERGIES: Noted as no known drug allergies. PHYSICAL EXAMINATION: GENERAL: This is a 71-year-old white male patient currently noted sitting on the chair without acute distress at time of the assessment. Height of the patient recorded by the nursing staff on admission as height of 5 feet 10 inches, weight of 196 pounds, BMI 28.1. VITAL SIGNS: Normal temperature since admission, respiratory recorded 16-18, heart rate of 75-73, blood pressure 126/65-109/73. Pulse oxygen saturation noted as 95% for the patient on 3 liter nasal cannula. HEAD, EYES, EARS, NOSE, AND THROAT: Examination shows head was atraumatic, pbyi-aq-qzumfccr obesity. NECK: Supple. Head was atraumatic. Jfkh-zs-gbxxmlgl. Decreased posterior pharyngeal space, high tongue with Cardene soft tissue structures. CARDIOVASCULAR SYSTEM: S1, S2 is audible. LUNGS: The patient was noted with a scattered crackles noted mainly in the right lung. There were no crackles or wheezing heard in the remaining lungs including the left side. ABDOMEN: Soft. Ievi-rs-xweffgwx obesity. Bowel sounds present without tenderness. EXTREMITIES: The patient noted without any edema, clubbing, cyanosis. MUSCULOSKELETAL SYMPTOMS: Without any acute deformities. SKIN: Noted without any abnormal lesions on the visible areas. LABORATORY AND DIAGNOSTIC DATA: Since admission. Alcohol level noted less than 3. The lactic acid noted 4.3 first on admission. Troponin normal on admission yesterday. CMP yesterday admission, BUN 20, creatinine 1.32, glucose 186. CBC yesterday, WBC count 21.9, hemoglobin and hematocrit normal, platelet count was normal. MCV 102. Influenza A and B, nasal washing antigens were tested as negative yesterday. Follow up lactic acid was 2.8. Troponin this morning normal. BMP normal, BUN and creatinine at this time. Glucose 177. The PT/INR, PTT were noted normal yesterday and this morning. CBC this morning, WBC count 19.5, hemoglobin 13.3, platelet count of 128,000. The review of the radiology data for the patient that was personally done. Chest x-ray that was done on this admission was reviewed, shows change of COPD hyperinflation with infiltration involving in the right lung involving almost all of the lobes. Infiltration appeared to be patchy in some area of consolidation. A CT scan of the chest that was done without contrast yesterday was personally reviewed shows evidence of infiltration was noted with area of consolidation in the right upper and the right lower lobes. Left lung was noted clear. There were no abnormal pulmonary nodules seen. IMPRESSION: 1. History of chronic alcohol dependence, currently admitted to the hospital. The patient with strong possibility of acute aspiration pneumonia, [place], [place] REPORT OF CONSULTATION [facility] [id number] UNIT #: [id number] ROOM: [facility] DOCTOR[facility] PAR[facility] [birth year] community-acquired aspiration would be seen. The patient was also noted signs of early sepsis on admission as well with leukocytosis, which has been noted somewhat decreased. 2. Rule out any oropharyngeal dysphagia as well with the modified barium swallow. 3. History of ramq-ye-xmenkrun obesity as well and other medical illnesses. Resolution of the lactic acidosis. PLAN OF MANAGEMENT: I agree with the current use of the antibiotic Rocephin and the Zithromax with monitoring the chest x-ray closely, repeat chest x-ray in the morning to reassess the progression of the pneumonia if there will be clinical radiologic evidence of worsening pneumonia certainly changes in the antibiotic would be noted appropriate. At this time, the patient remains afebrile. I would not require any new changes in the antibiotics. Sputum for Gram stain, culture will be collected as well. Other additional treatment changes to be done based on progression of the illness. The blood culture already taken in the Emergency Room, which was pending. The sputum for the patient was not collected so far. Additional changes again to be made for the patient based on progression of the illness. Thanks for allowing me to participate in the care of this patient. ANNE-MARIE TOLEDO MD CM:CONSTR:REPORT OF CONSULTATION 1252 06/27/17 1958 interface
--- NOTE | ~2017-06-26 | PR ---
[place], [place] PROGRESS NOTE NAME[facility]: [id number] UNIT #: [id number] ROOM: 521 DOCTOR: BENNIE VARGHESE,JULY BIRTHDATE: [birth year] DOS: SUBJECTIVE: The patient is a 71-year-old male who is being followed for pneumonia. He is currently on Levaquin, Zyvox and Zosyn. He was bronched yesterday. Bronch cultures are pending. The only thing showing so far is some yeast. His MRSA screen was negative. Influenza was negative. Blood cultures are negative. He denies any nausea or vomiting. He only complains of sore bottom. Continues with little bit of cough, nonproductive. States his breathing is improving. He is on O2 via nasal cannula. States his appetite is fine. No rash or itch. Denies any other pain besides of the buttocks. LABORATORY DATA: Show WBCs 10.8, platelets 122, BUN 13, creatinine 0.83. LFTs within normal limits. CURRENT MEDICATIONS: Vistaril, Zyvox, Levaquin, Ativan, Zosyn, folic acid, vitamin D, Mucinex, Atrovent, Coreg, DuoNeb, Restoril, Zofran. PHYSICAL EXAMINATION: VITAL SIGNS: Temperature 98.1, pulse 75, respirations 20, BP 103/60. He has had no fevers. GENERAL: Alert, pleasant 71-year-old male, up in the chair in no acute distress. HEENT: Normocephalic, no thrush. Edentulous. LUNGS: Diminished bilaterally throughout. Respirations even and unlabored. HEART: Regular rhythm. No murmur appreciated. ABDOMEN: Soft, nontender, nondistended. EXTREMITIES: No edema, deformity or cyanosis. SKIN: Warm, dry, free of rashes. IV in right upper extremity. No phlebitis. ASSESSMENT: Pneumonia, status post bronchoscopy yesterday. MRSA screen is negative. Urinary antigens are still pending. PLAN: I will continue the Levaquin and Zosyn, stop the Zyvox. The bronchoscopy documents bilious secretions in the trachea and lungs, patient does not give any history consistent with emesis or aspiration. Case discussed with Dr. Odessa Thayer. ADDENDUM After reviewing the chart and labs, I agree with the above plans as described. We will follow the patient up clinically and adjust accordingly. OZZIE AVERY CNP [place], [place] PROGRESS NOTE NAME: CATALINA RUIZ [facility] UNIT #: [id number] ROOM: 521 DOCTOR: BENNIE VARGHESEJULY BIRTHDATE: [birth year] ODESSA THAYER MD CM:PNTRANS [id number] OZZIE BENNIE VARGHESE 07/02/17 0217 interface
--- NOTE | ~2017-06-26 | PR ---
[place], [place] PROGRESS NOTE NAME: CATALINA RUIZ [facility] #: [id number] UNIT #: [id number] ROOM: 521 DOCTOR: PARIS CABRERA MD,ANNE-MARIE BIRTHDATE: [birth year] DOS: 07/06/2017 PULMONARY FOLLOWUP SUBJECTIVE: The patient has been comfortably sitting on the chair this morning. The coughing has been subsiding. Shortness of breath was improving. Continued on high flow oxygen supplementation nasal cannula. The patient has not been reported any symptoms of chest pain or any hemoptysis. Cough has been noted at times. The patient was not noted symptoms of headache or diplopia. General weakness, fatigue was noted. There were no symptoms of abdominal pain. Edema of the extremities described. Remaining systems were reviewed, they were noted all negative. OBJECTIVE: VITAL SIGNS: For the patient which has been recorded shows the temperature noted as normal, respiratory rate 18, heart rate of 70, blood pressure 122/75, pulse oxygen saturation recorded as 92, percent saturation 8 liters high flow nasal cannula. HEENT: Examination shows head was atraumatic. Eyes nonicterus. NECK: Supple. CARDIOVASCULAR: S1, S2 audible. LUNGS: Noted moderate decreased breath sounds. No crackles, no wheezing. ABDOMEN: Soft, obese, nontender. EXTREMITIES: Without any acute edema . Visible skin with no lesions or rashes. MUSCULOSKELETAL: Without acute deformities. CENTRAL NERVOUS SYSTEM: Generalized weakness without any focal deficit. LABORATORY DATA: CBC this morning: WBC count normal, hemoglobin 11.9, hematocrit 37.6, and platelet count normal. Chest x-ray yesterday noted persistent infiltration noted in the left lower lobe. IMPRESSION: 1. Persistent severe acute hypoxic respiratory failure requiring high flow of oxygen supplementation. Clinical resolution of the pneumonia has been noted gradually. 2. The patient with origin debility for the patient as well. 3. Suspected obstructive sleep apnea disorder. 4. Anemia, mild, chronic disease. PLAN OF TREATMENT: The patient will be continued antibiotics and bronchodilator. A detailed discussion with the patient's daughter has been done on the phone, her name is ____. She has been explained the necessity of the further acute care for the patient or minimum care for this patient in the long-term facility, but she absolutely does not want her dad to go to any long-term facility at this time. Based on the discussion, she will be willing the patient to be discharged home with oxygen supplementation that could be arranged. In my opinion, the patient is not fit to be discharged at this time from the hospital, continued acute care for the patient to be treated. However, if the patient decides the patient to be discharged that could be done [place], [place] PROGRESS NOTE NAME[facility] [id number] UNIT #: [id number] ROOM: 521 DOCTOR: PARIS CABRERA MD,ANNE-MARIE BIRTHDATE: [birth year] based on her own and personally approved. The patient was independently seen and examined, zypl-mt-lofi encounter for today's visit. The history of the patient was personally reviewed. The physical assessment was performed. Any available labs were reviewed for today's assessment. Management for any changes were personally approved for the patient. Note done by medical insurance verifier, was approved. ANNE-MARIE TOLEDO MD CM:PNTRANS [id number] ANNE-MARIE CABRERA MD 07/06/172056 interface
--- NOTE | ~2017-06-26 | PR ---
[place], [place] PROGRESS NOTE NAME: CATALINA RUIZ [facility] #: [id number] UNIT #: [id number] ROOM: 521 DOCTOR: CHARLOTTE CRAIG MD BIRTHDATE: [birth year] DOS: 07/11/2017 SUBJECTIVE: The patient was seen today at his bedside on 07/11/2017 for followup of his atrial fibrillation and rapid ventricular response. He is a 71-year-old man who presented to the hospital on 06/26/2017 with shortness of breath and pneumonia. His hospitalization was complicated by development of atrial fibrillation and flutter. An echocardiogram showed normal left ventricular size with normal segmental wall motion, mild concentric left ventricular hypertrophy and normal systolic function, but stage 2 diastolic relaxation abnormalities. The left atrium was moderately enlarged. The patient was treated for pneumonia, but despite his initial response, he did worsen and was found to have extension of the pneumonia into his other lung. In addition, he did have episodic left bundle-branch block and tachycardia. He was evaluated by Dr. Lee who changed his management strategy and antibiotics. He has subsequently improved and now is very anxious to leave, but still has periods of atrial fibrillation with rapid ventricular response. We have been adjusting his medications and his heart rate is coming under better control. He has not been on intravenous diltiazem for the last 24 hours. PHYSICAL EXAMINATION: VITAL SIGNS: Today, his pulse is 90 and irregularly irregular. Blood pressure is 104/60, he is afebrile. He weighs 89.1 kg and has a body mass index 28.2. HEENT: Normocephalic, atraumatic. Extraocular muscles are intact. Sclerae are clear. Pupils equal, round and react to light. The oral mucosa is moist. Tongue is midline. NECK: Supple. He has no jugular distention. Carotids are full. LUNGS: Respirations are unlabored. His chest is clear with decreased breath sounds at the bases, but no wheezes or rales. He has no presacral edema. HEART: Has an irregularly irregular rhythm without murmurs or gallops. ABDOMEN: Benign. EXTREMITIES: Showed no edema. IMPRESSION: 1. Bilateral pneumonia, improving. 2. Hypertension. 3. Newly documented atrial fibrillation with rapid ventricular response. 4. History of alcohol abuse prior to admission. 5. Protein calorie malnutrition. 6. Chronic diastolic heart failure. PLAN: We will increase his carvedilol from 12.5 mg q. 8 hours to 25 mg twice a day and continue to observe his heart rates. He will remain on rivaroxaban for stroke prophylaxis. I thank the hospitalist physicians for asking our advice regarding his care. [place], [place] PROGRESS NOTE NAME: CATALINA RUIZ UNIT #: [id number] ROOM: 521 DOCTOR: CHARLOTTE CRAIG MD BIRTHDATE: [birth year] CHARLOTTE CRAIG MD CM:PNTRANS [id number] CHARLOTTE CRAIG MD 07/11/17 1017 interface
--- NOTE | ~2017-06-26 | PR ---
[place], [place] PROGRESS NOTE NAME: CATALINA RUIZ UNIT #: [id number] ROOM: 521 DOCTOR: ANNE-MARIE GARNER MD BIRTHDATE: [birth year] DOS: 07/05/2017 SUBJECTIVE: The patient independently seen and examined, hwmr-ii-zdei encounter, history was confirmed. Physical examination performed. The available labs for the patient for today's visit were reviewed with the patient independently and completely. The assessment of the patient was personally completed and the management change was done for the patient on today's visit as well. The note done by the medical assistant secretary was approved. The patient was noted comfortably sitting on the chair this morning, using oxygen supplementation up to 8 liters high flow nasal cannula. Denies symptoms of shortness of breath, coughing, sputum expectoration. The patient is agreeable to senior care facility placement. PHYSICAL EXAMINATION: VITAL SIGNS: Reviewed. The patient essentially noted normal. The pulse oxygen saturation for the patient recorded on 8 liters high flow nasal cannula 91-92% saturation. LUNGS: Noted decreased breath sounds with minimal crackles in the lung bases. No wheezing. ABDOMEN: Soft. EXTREMITIES: Without any acute edema. LABORATORY DATA: CBC: Normal WBC count, hemoglobin 11.9 today. CMP: Normal BUN and creatinine. IMPRESSION: 1. The patient with resolving acute pneumonia gradually for the patient clinically with improving acute severe hypoxic respiratory failure, status post intubation, mechanical ventilation and liberation from mechanical ventilator. 2. Overall debility. PLAN OF TREATMENT: Titrate oxygen and maintain pulse ox saturation 90% or greater. Continue to use the BiPAP for respiratory failure management and suspected obstructive sleep apnea disorder. Obtain another chest x-ray today to reassess the progression of pneumonia prior to making the discharge planning. [place], [place] PROGRESS NOTE NAME: CATALINA RUIZ UNIT #: [id number] ROOM: 521 DOCTOR: ANNE-MARIE GARNER MD BIRTHDATE: [birth year] ANNE-MARIE TOLEDO MD CM:PNTRANS [id number] ANNE-MARIE CABRERA MD 07/05/172035 interface
--- NOTE | ~2017-06-26 | PROC NOTE ---
[place], [place] PROCEDURE NOTE [id number] UNIT #: [id number] ROOM: [place] [id number] DOCTOR: PARIS CABRERA MD,ANNE-MARIE BIRTHDATE: [birth year] DOS: 06/30/2017 PROCEDURE: Bronchoscopy. PREOPERATIVE DIAGNOSES: Acute pneumonia, which has been noted hospital-acquired pneumonia for this patient with bilateral pulmonary infiltration and coughing and respiratory failure. POSTOPERATIVE DIAGNOSES: Copious amount of bilious secretion removed from the tracheal lumen as well as in the endobronchial tree bilaterally, mainly in the lower lungs. There were no endobronchial obstructive lesions. PROCEDURE DESCRIPTION: Informed consent obtained from the patient and family members. The patient was brought to the OR and placed in supine position. The patient was given for conscious sedation. After that, the patient has LMA placed in for the oxygenation. The bronchoscope advanced through the LMA for this patient. Vocal cords were seen. Epiglottis was seen. Bronchoscope advanced into vocal cord and tracheal lumen. Moderate to copious amount of secretion present in tracheal lumen, which was suctioned out to the shivam level. Similar secretion present mostly in the lower lobe bronchi for this patient. The endobronchial tree was inspected bilaterally including right upper, right middle, right lower, left upper, lingula and lower lobe. All the bronchi ____ were noted patent. The bronchial washing sent for appropriate culture. Procedure well tolerated by the patient without any complications. Postoperative findings were discussed with the patient's family members in detail. ANNE-MARIE TOLEDO MD CM:PROCNOTE:PROCEDURE NOTE [id number] ANNE-MARIE CABRERA MD
--- NOTE | ~2017-06-26 | PR ---
[place], [place] PROGRESS NOTE NAME: [facility]NA [facility]Z [id number] UNIT #: [id number] ROOM: 521 DOCTOR: AMRIT FERRERA MD BIRTHDATE: [birth year] DOS: 07/09/2017 REASON FOR VISIT: Atrial fibrillation and wide complex tachycardia. SUBJECTIVE: The patient denies any chest pain, palpitations, is feeling better. He is less short of breath. No PND, no orthopnea, no nausea. He went into atrial fibrillation with rapid ventricular rate last night and was started on IV Cardizem for rate control. His blood pressure is stable. REVIEW OF SYSTEMS: Review of the 8 systems negative except as mentioned above. RHYTHM STRIPS: The patient is currently in atrial fibrillation. His EKG showed atrial fibrillation with rapid ventricular rate and wide complex rhythm. The patient also had one episode of what looks like an atrial flutter with rapid ventricular rate. His labs and medications reviewed. PHYSICAL EXAMINATION: VITAL SIGNS: Blood pressure 120/65, pulse 75, respiratory rate 16. GENERAL: The patient is alert, oriented, no acute distress. HEAD: Pupils are round and equal. No jaundice. Tongue was moist and pharynx clear. NECK: Supple. No distended neck veins. No carotid bruit. CHEST: Symmetrical, nontender. LUNGS: A Few scattered rhonchi. Fair air entry bilaterally. HEART: Slightly irregular. No S3. Grade 1/6 systolic murmur at the right sternal border. No palpable thrills. ABDOMEN: Nontender. Bowel sounds normal. EXTREMITIES: Showed trace to 1+ edema. Distal pulses palpable. SKIN: Warm and dry. No cyanosis, no clubbing. RECTAL: Deferred. GENITOURINARY: Deferred. NEUROLOGIC: The patient is alert, oriented. No focal neurologic deficit. PSYCHIATRIC: The patient is alert with good mood and affect. DIAGNOSTIC TESTS: Review of the diagnostic test, EKG, rhythm strips reviewed. EKG showed atrial fibrillation with rapid ventricular rate, underlying intraventricular conduction delay. Rhythm strip showed atrial fibrillation, rapid ventricular rate and also one episode of atrial flutter with rapid ventricular rate. IMPRESSION: 1. New onset atrial fibrillation with rapid ventricular rate. The patient has a high CHADS2-VASc score. Risks, benefits of the anticoagulation discussed and he was also started on Xarelto by Dr. Shay Gupta. The patient and family aware of the bleeding risk from the Xarelto. His 2D echo showed no LV function and he had no significant valvular heart disease by echo. 2. Dyspnea due to chronic respiratory failure. The patient is improving, Pulmonary on case. [place], [place] PROGRESS NOTE NAME: CATALINA RUIZ UNIT #: [id number] ROOM: 521 DOCTOR: MAISHA WILSON,AMRIT BIRTHDATE: [birth year] 3. Pneumonia versus pneumonitis. Infectious Disease consultants on case. 4. Non-morbid obesity. 5. Hypertension, stable. 6. Intermittent left bundle branch block, nonischemic stress test and normal LV function. 7. Wean off his IV Cardizem and put him on p.o. Cardizem tomorrow. 8. The above treatment discussed with the patient and his daughter who is at bedside and all questions were answered. 9. Possible discharge in the next 24-48 hours. 10. He will follow with Dr. Shawn Bob in 1-2 weeks in the office after discharge. AMRIT FERRERA MD CM:LENY [id number] AMRIT FERRERA MD 07/09/172210 interface
--- NOTE | ~2017-06-26 | PR ---
[place], [place] PROGRESS NOTE [id number] [facility] #: [id number] ROOM: 521 DOCTOR: PARIS CABRERA MD,ANNE-MARIE BIRTHDATE: [birth year] DOS: 07/08/2017 SUBJECTIVE: The patient noted comfortable at this time, sitting on the chair this morning. The patient was continued on oxygen supplementation 6 liters high flow nasal cannula at rest. Denies symptoms of chest pain or hemoptysis. Denies coughing or acute shortness of breath. PHYSICAL EXAMINATION: VITAL SIGNS: Temperature 99.4 degree Fahrenheit to a normal temperature, respiratory rate 20, heart rate 82, blood pressure 128/90. The pulse ox saturation on 6 liters high flow nasal cannula 92% saturation at rest. HEENT: Examination shows head was atraumatic. Eyes nonicterus. NECK: Supple. CARDIOVASCULAR: S1, S2 audible. LUNGS: Without any acute distress. ABDOMEN: Soft, nontender. EXTREMITIES: Without any acute edema. IMPRESSION: The patient with stable respiratory failure, which has been noted gradual improvement, improving acute pneumonia and/or debility. PLAN OF TREATMENT: No changes in treatment at this time. Continuation of current therapy, titrate oxygen, and other therapies plan of care. ANNE-MARIE TOLEDO MD CM:PNTRANS [id number] ANNE-MARIE CABRERA MD 07/08/17 1354 interface
--- NOTE | ~2017-06-26 | PR ---
[place], [place] PROGRESS NOTE NAME: CATALINA RUIZ [facility] #: [id number] UNIT #: [id number] ROOM: 521 DOCTOR: TRAV GOMEZ DO BIRTHDATE: [birth year] DOS: 07/05/2017 SUBJECTIVE: The patient's respiratory status is improving slowly and steadily. He has been using the BiPAP intermittently, especially at night, but is currently still requiring oxygen via high flow nasal cannula, currently at 8 liters per minute. He denies any current complaints or symptoms including chest pain or hemoptysis. He states he feels like he is breathing easier today. The patient has been working with physical therapy yesterday and did become hypoxic while up and ambulating with physical therapy. He has not yet participated in physical therapy today. PHYSICAL EXAMINATION: VITAL SIGNS: At the time of exam, temperature 98.5, pulse 74, respiratory rate 20, blood pressure 127/66, bedside pulse ox 98% on high flow nasal cannula 8 liters per minute. GENERAL APPEARANCE: Alert, awake, no acute distress, responsive, cooperative. HEAD: Normocephalic, atraumatic. EYES: No lesions or ulcerations. Nonicteric. No drainage. ENT: No lesions, scars or masses. Nasal mucosa moist. Nares patent. Oropharynx clear. Oral mucosa moist. Turbinates are pink. NECK: Without lesions, no masses, no ulcerations. Trachea midline. LUNGS: No respiratory distress at rest, but does exhibit dyspnea on exertion. Lungs are mildly diminished throughout, but no wheezing, rales or rhonchi are appreciated at this time. CARDIOVASCULAR: Regular rate and rhythm. No gallop, no murmur, no edema of lower extremities. S1 and S2 audible. ABDOMEN: Soft and obese, nontender, nondistended. Positive bowel sounds. No organomegaly appreciated. EXTREMITIES: No clubbing, cyanosis, erythema or edema appreciated. SKIN: Warm and dry, no rashes, no induration, no nodules. The patient does have a stage 1 decubitus ulcer on the coccyx with bandage applied. Clean, dry and intact. PSYCHIATRIC: Exhibits normal mood and affect, good recent memory, but fair historian. LABORATORY AND DIAGNOSTIC DATA: CBC from today, white blood cell count 7.1, hemoglobin 11.9, hematocrit 37.6, platelet count 164. CMP from today, sodium 140, potassium 3.7, chloride 99, bicarbonate 35, BUN 11, creatinine 0.77, glucose 98, calcium 8.6, albumin 2.1, total protein 5.9, phosphorus 3.1, magnesium 2.4. Respiratory viral panel is significant for positive adenovirus antibody, chlamydia IgG antibody, mycoplasma pneumonia IgG, parainfluenza type 1, parainfluenza type 3. Bronchoscopy culture shows only a few budding yeast with many white blood cells and moderate epithelial cells. Chest x-ray from today shows interstitial disease in the left lower lobe with hyperaerated lungs. IMPRESSION: 1. Chronic obstructive pulmonary disease and left lower lobe pneumonia, which is a change from the July 01 chest x-ray which noted airspace consolidations [place], [place] PROGRESS NOTE NAME: CATALINA RUIZ UNIT #: [id number] ROOM: 521 DOCTOR: TRAV GOMEZ DO BIRTHDATE: [birth year] in both lungs. 2. Continued slow improvement of hypoxic respiratory failure with acute pneumonia. The patient is still requiring use of the BiPAP intermittently and high flow oxygen via nasal cannula, currently at 8 liters per minute when not on BiPAP. PLAN OF TREATMENT: Continuation of the current treatment plan. Long-term acute care placement was recommended to the patient and family; however, they have refused. The patient and family are agreeable to placement at a correction facility and primary team and case management has started process for SNF placement in that regard. The patient is not quite ready medically for discharge at this time, but may be ready for SNF placement after a couple more days of inpatient therapy. Continue DuoNeb and IV Levaquin for the treatment of pneumonia. TRAV GOMEZ DO ANNE-MARIE TOLEDO MD CM:PNLISSY [id number] TRAV GOMEZ DO 07/05/171710 interface
--- NOTE | ~2017-06-26 | PR ---
[place], [place] PROGRESS NOTE NAME: CATALINA RUIZ UNIT #: [id number] ROOM: 521 DOCTOR: AMRIT FERRERA MD BIRTHDATE: [birth year] DOS: 07/02/2017 REASON FOR VISIT: Abnormal EKG and left bundle branch block. HISTORY OF PRESENT ILLNESS: The patient is feeling better. Denies any chest pain or shortness of breath, no edema, no orthopnea, no fever and chills. REVIEW OF SYSTEMS: Review of the 8 systems negative except as mentioned above. PHYSICAL EXAMINATION: VITAL SIGNS: Blood pressure 148/68, pulse 80 and respiratory rate 20. RHYTHM STRIPS: The patient in sinus rhythm on the monitor. GENERAL: Patient is alert, comfortable, in no acute distress, sitting in the chair next to bed. HEENT: Pupils are round and equal. No jaundice. NECK: Supple, no distended neck veins, no carotid bruit. CHEST: Symmetrical, nontender. LUNGS: Few scattered rhonchi, diminished at bases. HEART: Regular rhythm, no S3. Grade 1/6 systolic murmur. ABDOMEN: Nontender. Bowel sounds normal. EXTREMITIES: Showed trace edema. Distal pulses palpable. SKIN: Warm and dry. No cyanosis, no clubbing. MEDICATIONS AND ALLERGIES: Reviewed. IMPRESSIONS: 1. Intermittent left bundle branch block. 2. Hypertension. 3. Pneumonia. 4. Abnormal EKG with anterior ST-T changes. 5. Non-morbid obesity. RECOMMENDATIONS: 1. Continue current medications. 2. Lexiscan stress test tomorrow. Further recommendation based on his stress test. 3. No family at bedside at the time of my examination. [place], [place] PROGRESS NOTE NAME: CATALINA RUIZ UNIT #: [id number] ROOM: 521 DOCTOR: AMRIT FERRERA MD BIRTHDATE: [birth year] AMRIT FERRERA MD CM:PNTRANS [phone] AMRIT FERRERA MD 07/03/17 0103 interface
--- NOTE | ~2017-06-26 | PR ---
[place], [place] PROGRESS NOTE [id number] UN[facility] #: [id number] ROOM: 521 DOCTOR: EMMANUEL EASTON MD BIRTHDATE: [birth year] DOS: 07/04/2017 SUBJECTIVE: The patient denies any fever or chills. No shortness of breath. Occasional dry cough. No chest pain. REVIEW OF SYSTEMS: A 10-point review of systems has been done. Pertinent negative and positives have been included in HPI, rest are noncontributory. PHYSICAL EXAMINATION: VITAL SIGNS: Temperature 98.7, pulse rate 72, respiratory rate 20, blood pressure 120/56, oxygen saturation 97% on 8 liters of high flow oxygen. GENERAL: The patient is alert, oriented x 3, not in acute distress. HEENT: Atraumatic, normocephalic. PERRLA, EOMI. RESPIRATORY: Air entry bilaterally equal. Occasional expiratory wheezing, right more than left lung. Right lower lung crackles at the base, minimal. CARDIOVASCULAR: S1, S2 normal, no murmurs, rubs or gallops. ABDOMEN: Soft, nontender, nondistended. Bowel sounds present in 4 quadrants. EXTREMITIES: No pedal edema. NEUROLOGIC: Grossly intact. LABORATORY DATA AND IMAGING: Noted. IMPRESSION PLAN: Atypical pneumonia, likely after a viral illness from parainfluenza. PLAN: At this point in time, the patient is hemodynamically stable, clinically improving, levofloxacin for another 10 days, 750 daily. Scripts done. The patient is okay to go from an infectious standpoint. Kami Easton MD CM:PNTRANS [phone] EMMANUEL EASTON MD 07/04/17 2332 interface
[~2017-06-26 14:52] MED LIST: ANAPROX DS550 MG PO; COREG12.5 M1 PO; COREG3.125 MG PO; DIPHENHYDRAMINE50 M3 PO; DUONEB 3 MG/3 ML3 M1 NEB; EPIPEN 2-PAK1 MG/ML IJ; LEVAQUIN750 M1 PO; MUCINEX ER600 MG PO; PREDNISONE20 M1 PO; PRILOSEC20 M1 PO; SYMBICORT1 AE1 INH; THERA TABS1 TAB PO; ZITHROMAX Z PA250 MG PO
[2017-06-26 15:05] VITALS: BP 126/65
[2017-06-26] MEDS ORDERED: LOSARTAN POTASS25 M1 PO (15:07)
[2017-06-26] MEDS ORDERED: SPIRIVA -- 3018 MCG INH (15:08)
[2017-06-26 15:20] LABS: HEMATOCRIT 46.8 % (42.0-52.0); HEMOGLOBIN 15.5 g/dl (14.0-18.0); MEAN CORPUSCULAR HGB 33.8 pg (27.0-31.0); MEAN CORPUSCULAR HGB CONC 33.1 g/dl (33.0-37.0); MEAN PLATELET VOLUME 10.8 fl (9.6-12.3); PLATELET COUNT AUTOMATED 147 10*3/uL (130-400); RED BLOOD COUNT 4.59 10*6/uL (4.50-5.90); RED CELL DISTRI WIDTH 13.7 % (0-14.5); WHITE BLOOD COUNT 21.9 10*3/uL (4.8-10.8)
[2017-06-26 15:41] LABS: ALBUMIN 3.1 gm/dl (3.1-4.5); ALKALINE PHOSPHATASE 76 U/L (45-117); BUN 20 mg/dl (7-24); CHLORIDE 102 mmol/L (98-107); CREATININE 1.32 mg/dL (0.70-1.30); POTASSIUM 4.1 mmol/L (3.5-5.1); SGOT/AST 57 IU/L (3-35); SODIUM 140 mmol/L (136-145); TOTAL PROTEIN 7.1 gm/dL (6.4-8.2)
[2017-06-26 15:42] LABS: SGPT/ALT 65 U/L (12-78)
[2017-06-26 15:48] LABS: TOTAL CELLS COUNTED 100 #CELLS
[2017-06-26 15:49] LABS: PLATELET SUFFICIENCY NORMAL (NORMAL)
[2017-06-26 17:29] VITALS: BP 126/85
[2017-06-26 18:00] VITALS: BP 140/74
[2017-06-26 20:00] VITALS: BP 140/64
[2017-06-27] VITALS: BP 109/73
[2017-06-27 05:54] LABS: ALBUMIN 2.7 gm/dl (3.1-4.5); ALKALINE PHOSPHATASE 57 U/L (45-117); BUN 19 mg/dl (7-24); CHLORIDE 103 mmol/L (98-107); CHOLESTEROL 123 mg/dL (<200); CREATININE 0.75 mg/dL (0.70-1.30); HDL CHOLESTEROL 51 mg/dl (40-60); LDL CHOLESTEROL 56 mg/dL (9-159); PHOSPHOROUS 2.4 mg/dL (2.5-4.9); POTASSIUM 3.8 mmol/L (3.5-5.1); SGOT/AST 30 IU/L (3-35); SGPT/ALT 45 U/L (12-78); SODIUM 140 mmol/L (136-145); TOTAL PROTEIN 6.2 gm/dL (6.4-8.2); TRIGLYCERIDES 81 mg/dl (<150); VLDL CHOLESTEROL 16 mg/dL (6-40)
[2017-06-27 06:00] LABS: MEAN CELL VOLUME 103.1 fl (80.0-94.0); MEAN CORPUSCULAR HGB 33.8 pg (27.0-31.0); MEAN CORPUSCULAR HGB CONC 32.8 g/dl (33.0-37.0); MEAN PLATELET VOLUME 11.2 fl (9.6-12.3); PLATELET COUNT AUTOMATED 128 10*3/uL (130-400); RED BLOOD COUNT 3.93 10*6/uL (4.50-5.90); RED CELL DISTRI WIDTH 13.7 % (0-14.5); THYROID STIM HORMONE (HS) 0.473 uIU/ml (0.358-4.75); WHITE BLOOD COUNT 19.5 10*3/uL (4.8-10.8)
[2017-06-27 06:06] LABS: HEMATOCRIT 40.5 % (42.0-52.0); HEMOGLOBIN 13.3 g/dl (14.0-18.0)
[2017-06-27 06:29] LABS: INTERNATIONAL NORM RATIO 1.1 (2.0-3.5)
[2017-06-27 06:46] LABS: TOTAL CELLS COUNTED 100 #CELLS
[2017-06-27 06:47] LABS: PLATELET SUFFICIENCY LOW (NORMAL)
[2017-06-27 07:37] LABS: VITAMIN D, 25-HYDROXY 10.9 ng/mL (30-100)
[2017-06-27 08:00] VITALS: BP 112/70
[2017-06-27 12:00] VITALS: BP 114/58
[2017-06-27 16:00] VITALS: BP 112/56
[2017-06-27 20:00] VITALS: BP 96/60
[2017-06-28] VITALS: BP 103/60
[2017-06-28 06:24] LABS: BASO % 0.1 % (0.0-1.0); EOS % 0.1 % (1.0-4.0); HEMATOCRIT 42.1 % (42.0-52.0); HEMOGLOBIN 13.1 g/dl (14.0-18.0); LYMPH # 1.3 10*3/uL (1.3-4.4); LYMPH % 7.5 % (27.0-41.0); MEAN CORPUSCULAR HGB 33.2 pg (27.0-31.0); MEAN CORPUSCULAR HGB CONC 31.1 g/dl (33.0-37.0); MEAN PLATELET VOLUME 11.2 fl (9.6-12.3); MONO # 0.9 10*3/uL (0.1-1.0); MONO % 5.3 % (3.0-9.0); NEUT # 14.5 10*3/uL (2.3-7.9); NEUT % 85.7 % (47.0-73.0); PLATELET COUNT AUTOMATED 123 10*3/uL (130-400); RED BLOOD COUNT 3.94 10*6/uL (4.50-5.90); WHITE BLOOD COUNT 16.9 10*3/uL (4.8-10.8)
[2017-06-28 06:26] LABS: MEAN CELL VOLUME 106.9 fl (80.0-94.0)
[2017-06-28 06:50] LABS: BUN 26 mg/dl (7-24); CHLORIDE 103 mmol/L (98-107); POTASSIUM 3.9 mmol/L (3.5-5.1); SODIUM 142 mmol/L (136-145)
[2017-06-28 06:53] LABS: CREATININE 0.89 mg/dL (0.70-1.30)
[2017-06-28 08:00] VITALS: BP 126/65
[2017-06-28 12:00] VITALS: BP 117/64
[2017-06-28 16:00] VITALS: BP 117/69
[2017-06-28 20:00] VITALS: BP 120/65
[2017-06-29] VITALS: BP 108/59
[2017-06-29 06:38] LABS: BASO # 0.1 10*3/uL (0.0-0.1); BASO % 0.6 % (0.0-1.0); EOS # 0.1 10*3/uL (0.0-0.4); EOS % 0.6 % (1.0-4.0); HEMATOCRIT 47.3 % (42.0-52.0); HEMOGLOBIN 15.2 g/dl (14.0-18.0); LYMPH % 9.5 % (27.0-41.0); MEAN CELL VOLUME 107.5 fl (80.0-94.0); MEAN CORPUSCULAR HGB 34.5 pg (27.0-31.0); MEAN CORPUSCULAR HGB CONC 32.1 g/dl (33.0-37.0); MEAN PLATELET VOLUME 10.6 fl (9.6-12.3); MONO # 0.6 10*3/uL (0.1-1.0); MONO % 5.6 % (3.0-9.0); NEUT # 8.6 10*3/uL (2.3-7.9); PLATELET COUNT AUTOMATED 159 10*3/uL (130-400); RED CELL DISTRI WIDTH 14.2 % (0-14.5); WHITE BLOOD COUNT 10.5 10*3/uL (4.8-10.8)
[2017-06-29 06:56] LABS: ALBUMIN 2.9 gm/dl (3.1-4.5); BUN 23 mg/dl (7-24); CHLORIDE 103 mmol/L (98-107); CREATININE 0.95 mg/dL (0.70-1.30); POTASSIUM 4.1 mmol/L (3.5-5.1); SGOT/AST 44 IU/L (3-35); SGPT/ALT 58 U/L (12-78); SODIUM 142 mmol/L (136-145)
[2017-06-29 06:57] LABS: ALKALINE PHOSPHATASE 77 U/L (45-117)
[2017-06-29 07:12] LABS: ABG BASE EXCESS 2.5 mmol/L (-2.0-2.0); ABG HCO3 30.9 mmol/l (22-26); ABG O2 SATURATION 90.5 % (95-97); ARTERIAL BLOOD GAS PCO2 66.1 mmHg (35-45); ARTERIAL BLOOD GAS PH 7.288 (7.35-7.45); ARTERIAL BLOOD GAS PO2 56.8 mmHg (80-90)
[2017-06-29 08:00] VITALS: BP 145/80
[2017-06-29 10:58] LABS: ACT PARTIAL THROMBO TIME 24.3 SECONDS (20.8-31.5)
[2017-06-29 12:00] VITALS: BP 118/67
[2017-06-29 12:06] LABS: BILIRUBIN NEGATIVE (NEGATIVE); BLOOD NEGATIVE (NEGATIVE); CLARITY SL CLOUDY (CLEAR); COLOR YELLOW (YELLOW); GLUCOSE NEGATIVE (NEGATIVE); KETONE NEGATIVE (NEGATIVE); LEUKO ESTERASE NEGATIVE (NEGATIVE); NITRITE NEGATIVE (NEGATIVE); UROBILINOGEN 0.2 E.U./dl (0.2-1.0)
[2017-06-29 12:13] LABS: BACTERIA TRACE; MUCOUS TRACE
[2017-06-29 16:00] VITALS: BP 121/64
[2017-06-29 17:37] LABS: ABG BASE EXCESS 3.8 mmol/L (-2.0-2.0); ABG HCO3 30.7 mmol/l (22-26); ABG O2 SATURATION 96.4 % (95-97); ARTERIAL BLOOD GAS PCO2 58.9 mmHg (35-45); ARTERIAL BLOOD GAS PH 7.337 (7.35-7.45)
[2017-06-29 20:00] VITALS: BP 120/56
[2017-06-30] VITALS (12 sets, daily range): BP systolic 113–151; BP diastolic 55–80
[2017-06-30 05:14] LABS: ALBUMIN 2.3 gm/dl (3.1-4.5); ALKALINE PHOSPHATASE 57 U/L (45-117); BUN 16 mg/dl (7-24); CHLORIDE 102 mmol/L (98-107); CREATININE 0.86 mg/dL (0.70-1.30); PHOSPHOROUS 3.4 mg/dL (2.5-4.9); SGOT/AST 20 IU/L (3-35); SGPT/ALT 38 U/L (12-78); SODIUM 141 mmol/L (136-145); TOTAL PROTEIN 5.8 gm/dL (6.4-8.2)
[2017-06-30 06:06] LABS: HEMATOCRIT 39.9 % (42.0-52.0); MEAN CELL VOLUME 108.1 fl (80.0-94.0); MEAN CORPUSCULAR HGB 34.4 pg (27.0-31.0); MEAN CORPUSCULAR HGB CONC 31.8 g/dl (33.0-37.0); MEAN PLATELET VOLUME 10.9 fl (9.6-12.3); PLATELET COUNT AUTOMATED 120 10*3/uL (130-400); RED BLOOD COUNT 3.69 10*6/uL (4.50-5.90); RED CELL DISTRI WIDTH 14.2 % (0-14.5); WHITE BLOOD COUNT 13.2 10*3/uL (4.8-10.8)
[2017-06-30 06:07] LABS: HEMOGLOBIN 12.7 g/dl (14.0-18.0)
[2017-06-30 06:35] LABS: ATYPICAL LYMPHS 2 % (0-0); TOTAL CELLS COUNTED 100 #CELLS
[2017-06-30 06:36] LABS: PLATELET SUFFICIENCY NORMAL (NORMAL)
[2017-06-30 14:06] LABS: MYCOPLASMA PNEUMONIAE IGG 331 U/mL (0-99); MYCOPLASMA PNEUMONIAE IGM <770 U/mL (0-769)
[2017-06-30 14:06] LABS: MYCOPLASMA PNEUMONIAE IGG 341 U/mL (0-99); MYCOPLASMA PNEUMONIAE IGM <770 U/mL (0-769)
[2017-07-01] VITALS (7 sets, daily range): BP systolic 94–148; BP diastolic 55–83
[2017-07-01 05:09] LABS: BASO % 0.2 % (0.0-1.0); EOS # 0.4 10*3/uL (0.0-0.4); EOS % 3.2 % (1.0-4.0); HEMATOCRIT 41.2 % (42.0-52.0); HEMOGLOBIN 12.9 g/dl (14.0-18.0); LYMPH # 0.8 10*3/uL (1.3-4.4); LYMPH % 7.4 % (27.0-41.0); MEAN CELL VOLUME 107.3 fl (80.0-94.0); MEAN CORPUSCULAR HGB 33.6 pg (27.0-31.0); MEAN CORPUSCULAR HGB CONC 31.3 g/dl (33.0-37.0); MEAN PLATELET VOLUME 10.1 fl (9.6-12.3); NEUT # 8.5 10*3/uL (2.3-7.9); NEUT % 79.2 % (47.0-73.0); PLATELET COUNT AUTOMATED 122 10*3/uL (130-400); RED BLOOD COUNT 3.84 10*6/uL (4.50-5.90); RED CELL DISTRI WIDTH 13.6 % (0-14.5); WHITE BLOOD COUNT 10.8 10*3/uL (4.8-10.8)
[2017-07-01 05:35] LABS: ALBUMIN 2.3 gm/dl (3.1-4.5); ALKALINE PHOSPHATASE 60 U/L (45-117); BUN 13 mg/dl (7-24); CHLORIDE 101 mmol/L (98-107); CREATININE 0.83 mg/dL (0.70-1.30); POTASSIUM 3.8 mmol/L (3.5-5.1); SGOT/AST 17 IU/L (3-35); SGPT/ALT 32 U/L (12-78); SODIUM 142 mmol/L (136-145); TOTAL PROTEIN 6.1 gm/dL (6.4-8.2)
[2017-07-01 06:20] LABS: HIV 1+2 AB + HIV1 P24 AG Non Reactive (Non Reactive)
[2017-07-01 13:13] LABS: ACID FAST SPEC PROCESSING Concentration (.)
[2017-07-01 18:16] LABS: PARAINFLUENZA 1 CF 1:32 (Neg:<1:8); PARAINFLUENZA 2 CF Negative (Neg:<1:8)
[2017-07-02] VITALS: BP 152/74
[2017-07-02 06:21] LABS: BASO % 0.4 % (0.0-1.0); EOS # 0.3 10*3/uL (0.0-0.4); EOS % 3.9 % (1.0-4.0); LYMPH # 0.8 10*3/uL (1.3-4.4); LYMPH % 11.3 % (27.0-41.0); MEAN CELL VOLUME 106.1 fl (80.0-94.0); MEAN CORPUSCULAR HGB 33.5 pg (27.0-31.0); MEAN CORPUSCULAR HGB CONC 31.6 g/dl (33.0-37.0); MEAN PLATELET VOLUME 10.7 fl (9.6-12.3); MONO # 0.6 10*3/uL (0.1-1.0); NEUT # 5.1 10*3/uL (2.3-7.9); NEUT % 73.8 % (47.0-73.0); PLATELET COUNT AUTOMATED 144 10*3/uL (130-400); RED BLOOD COUNT 3.58 10*6/uL (4.50-5.90); RED CELL DISTRI WIDTH 13.2 % (0-14.5); WHITE BLOOD COUNT 6.9 10*3/uL (4.8-10.8)
[2017-07-02 06:35] LABS: BUN 13 mg/dl (7-24); CHLORIDE 100 mmol/L (98-107); CREATININE 0.71 mg/dL (0.70-1.30); POTASSIUM 3.6 mmol/L (3.5-5.1); SODIUM 140 mmol/L (136-145)
[2017-07-02 08:00] VITALS: BP 148/68
[2017-07-02 12:00] VITALS: BP 114/57
[2017-07-02 16:00] VITALS: BP 99/52
[2017-07-02 20:00] VITALS: BP 120/49
[2017-07-03] VITALS: BP 139/73
[2017-07-03 06:36] LABS: BASO % 0.2 % (0.0-1.0); EOS # 0.3 10*3/uL (0.0-0.4); EOS % 4.1 % (1.0-4.0); HEMATOCRIT 39.2 % (42.0-52.0); HEMOGLOBIN 12.2 g/dl (14.0-18.0); LYMPH # 0.9 10*3/uL (1.3-4.4); LYMPH % 13.9 % (27.0-41.0); MEAN CELL VOLUME 106.8 fl (80.0-94.0); MEAN CORPUSCULAR HGB 33.2 pg (27.0-31.0); MEAN CORPUSCULAR HGB CONC 31.1 g/dl (33.0-37.0); MEAN PLATELET VOLUME 10.2 fl (9.6-12.3); MONO # 0.6 10*3/uL (0.1-1.0); NEUT # 4.4 10*3/uL (2.3-7.9); NEUT % 71.2 % (47.0-73.0); PLATELET COUNT AUTOMATED 153 10*3/uL (130-400); RED BLOOD COUNT 3.67 10*6/uL (4.50-5.90); RED CELL DISTRI WIDTH 13.2 % (0-14.5); WHITE BLOOD COUNT 6.1 10*3/uL (4.8-10.8)
[2017-07-03 06:53] LABS: ALKALINE PHOSPHATASE 63 U/L (45-117); BUN 17 mg/dl (7-24); CHLORIDE 102 mmol/L (98-107); CREATININE 0.84 mg/dL (0.70-1.30); POTASSIUM 3.7 mmol/L (3.5-5.1); SGOT/AST 30 IU/L (3-35); SGPT/ALT 40 U/L (12-78); SODIUM 142 mmol/L (136-145); TOTAL PROTEIN 5.9 gm/dL (6.4-8.2)
[2017-07-03 08:00] VITALS: BP 151/73
[2017-07-03 12:00] VITALS: BP 139/64
[2017-07-03 16:00] VITALS: BP 110/82
[2017-07-03 19:58] VITALS: BP 111/53
[2017-07-04] VITALS: BP 150/83
[2017-07-04 06:56] LABS: BASO % 0.4 % (0.0-1.0); EOS # 0.2 10*3/uL (0.0-0.4); EOS % 2.4 % (1.0-4.0); HEMATOCRIT 39.5 % (42.0-52.0); HEMOGLOBIN 12.5 g/dl (14.0-18.0); LYMPH # 0.9 10*3/uL (1.3-4.4); LYMPH % 12.2 % (27.0-41.0); MEAN CELL VOLUME 105.9 fl (80.0-94.0); MEAN CORPUSCULAR HGB 33.5 pg (27.0-31.0); MEAN CORPUSCULAR HGB CONC 31.6 g/dl (33.0-37.0); MONO # 0.6 10*3/uL (0.1-1.0); MONO % 8.7 % (3.0-9.0); NEUT # 5.3 10*3/uL (2.3-7.9); NEUT % 75.4 % (47.0-73.0); PLATELET COUNT AUTOMATED 167 10*3/uL (130-400); RED BLOOD COUNT 3.73 10*6/uL (4.50-5.90); RED CELL DISTRI WIDTH 13.2 % (0-14.5)
[2017-07-04 07:26] LABS: ALBUMIN 2.2 gm/dl (3.1-4.5); ALKALINE PHOSPHATASE 60 U/L (45-117); BUN 13 mg/dl (7-24); CHLORIDE 99 mmol/L (98-107); CREATININE 0.74 mg/dL (0.70-1.30); POTASSIUM 3.4 mmol/L (3.5-5.1); SGOT/AST 26 IU/L (3-35); SGPT/ALT 35 U/L (12-78); SODIUM 138 mmol/L (136-145); TOTAL PROTEIN 6.2 gm/dL (6.4-8.2)
[2017-07-04 08:00] VITALS: BP 155/79
[2017-07-04 12:00] VITALS: BP 115/53
[2017-07-04 16:00] VITALS: BP 120/56; BP 154/67
[2017-07-04] MEDS ORDERED: LEVAQUIN750 M1 PO (16:57)
[2017-07-04 20:00] VITALS: BP 124/66
[2017-07-05] VITALS: BP 133/77
[2017-07-05 06:33] LABS: BASO % 0.3 % (0.0-1.0); EOS # 0.2 10*3/uL (0.0-0.4); EOS % 2.4 % (1.0-4.0); HEMATOCRIT 37.6 % (42.0-52.0); HEMOGLOBIN 11.9 g/dl (14.0-18.0); LYMPH # 1.2 10*3/uL (1.3-4.4); LYMPH % 17.4 % (27.0-41.0); MEAN CELL VOLUME 104.4 fl (80.0-94.0); MEAN CORPUSCULAR HGB 33.1 pg (27.0-31.0); MEAN CORPUSCULAR HGB CONC 31.6 g/dl (33.0-37.0); MEAN PLATELET VOLUME 9.9 fl (9.6-12.3); MONO # 0.8 10*3/uL (0.1-1.0); MONO % 10.5 % (3.0-9.0); NEUT # 4.9 10*3/uL (2.3-7.9); NEUT % 68.3 % (47.0-73.0); PLATELET COUNT AUTOMATED 164 10*3/uL (130-400); WHITE BLOOD COUNT 7.1 10*3/uL (4.8-10.8)
[2017-07-05 06:34] LABS: CHLORIDE 99 mmol/L (98-107); POTASSIUM 3.7 mmol/L (3.5-5.1); SODIUM 140 mmol/L (136-145)
[2017-07-05 06:43] LABS: ALBUMIN 2.1 gm/dl (3.1-4.5); ALKALINE PHOSPHATASE 57 U/L (45-117); BUN 11 mg/dl (7-24); CREATININE 0.77 mg/dL (0.70-1.30); PHOSPHOROUS 3.1 mg/dL (2.5-4.9); SGOT/AST 25 IU/L (3-35); SGPT/ALT 34 U/L (12-78); TOTAL PROTEIN 5.9 gm/dL (6.4-8.2)
[2017-07-05 08:00] VITALS: BP 127/66
[2017-07-05 12:00] VITALS: BP 132/68
[2017-07-05 16:00] VITALS: BP 133/69
[2017-07-05 20:00] VITALS: BP 118/59
[2017-07-06] VITALS: BP 131/67
[2017-07-06 08:00] VITALS: BP 123/75
[2017-07-06 12:00] VITALS: BP 130/76
[2017-07-06 16:00] VITALS: BP 124/66
[2017-07-06 20:00] VITALS: BP 128/60
[2017-07-07] VITALS: BP 140/81
[2017-07-07 08:00] VITALS: BP 136/66
[2017-07-07 12:00] VITALS: BP 133/56
[2017-07-07 16:00] VITALS: BP 126/56
[2017-07-07 20:00] VITALS: BP 114/57
[2017-07-08] VITALS: BP 120/72
[2017-07-08 08:00] VITALS: BP 128/90
[2017-07-08 12:00] VITALS: BP 120/94
[2017-07-08 16:00] VITALS: BP 114/69
[2017-07-08 20:00] VITALS: BP 93/57
[2017-07-09] VITALS (16 sets, daily range): BP systolic 90–138; BP diastolic 46–94
[2017-07-09 10:46] LABS: BASO # 0.1 10*3/uL (0.0-0.1); BASO % 0.8 % (0.0-1.0); EOS # 0.1 10*3/uL (0.0-0.4); EOS % 1.9 % (1.0-4.0); HEMOGLOBIN 12.9 g/dl (14.0-18.0); LYMPH % 15.2 % (27.0-41.0); MEAN CELL VOLUME 101.6 fl (80.0-94.0); MEAN CORPUSCULAR HGB 33.6 pg (27.0-31.0); MEAN CORPUSCULAR HGB CONC 33.1 g/dl (33.0-37.0); MEAN PLATELET VOLUME 10.1 fl (9.6-12.3); MONO # 0.8 10*3/uL (0.1-1.0); MONO % 11.7 % (3.0-9.0); NEUT # 4.5 10*3/uL (2.3-7.9); NEUT % 69.6 % (47.0-73.0); PLATELET COUNT AUTOMATED 260 10*3/uL (130-400); RED BLOOD COUNT 3.84 10*6/uL (4.50-5.90); RED CELL DISTRI WIDTH 12.9 % (0-14.5); WHITE BLOOD COUNT 6.4 10*3/uL (4.8-10.8)
[2017-07-09 11:03] LABS: ALBUMIN 2.4 gm/dl (3.1-4.5); ALKALINE PHOSPHATASE 66 U/L (45-117); BUN 11 mg/dl (7-24); CHLORIDE 104 mmol/L (98-107); CREATININE 0.83 mg/dL (0.70-1.30); POTASSIUM 4.1 mmol/L (3.5-5.1); SGOT/AST 51 IU/L (3-35); SGPT/ALT 61 U/L (12-78); SODIUM 139 mmol/L (136-145); TOTAL PROTEIN 6.8 gm/dL (6.4-8.2)
[2017-07-10] VITALS (12 sets, daily range): BP systolic 90–122; BP diastolic 54–79
[2017-07-11] VITALS: BP 140/74
[2017-07-11 08:00] VITALS: BP 104/60
[2017-07-11 12:00] VITALS: BP 110/68
[2017-07-11 16:00] VITALS: BP 105/61
[2017-07-11 20:00] VITALS: BP 103/60
[2017-07-12] VITALS: BP 92/52
[2017-07-12 08:00] VITALS: BP 107/70
[2017-07-12 12:00] VITALS: BP 110/62
[2017-07-12] MEDS ORDERED: CARVEDILOL25 MG PO (15:57)
[2017-07-12] MEDS ORDERED: XARE20MG PO (15:57)
[2017-07-12] MEDS ORDERED: NATURE'S BLEND F1 MG PO (15:57)
[2017-07-12] MEDS ORDERED: VITAMIN D-32000 UNIT PO (15:57)
[2017-07-12 16:00] VITALS: BP 120/75
== END 2017-07-12 16:59 | disposition home or self-care (01) | DRG 871 ==
LOC: ED 14:52 → 4E 16:26 → 5E 16:26 → EDHOLD 16:26 → ICCU 16:26 → 4E 16:30 → ICCU 06-29 07:59 → 5E 07-01 12:27
PROVIDERS: Emergency Medicine; Hospitalist; Internal Medicine; Internal Medicine Critical Care Medicine; Internal Medicine Hospice and Palliative Medicine; Nurse Practitioner Family; Registered Nurse; Student in an Organized Health Care Education/Training Program
PROC: BD11YZZ Fluoroscopy of Esophagus using Other Contrast (ICD-10-PCS; principal; 2017-06-27)
PROC: 5A09357 Assistance with Respiratory Ventilation, Less than 24 Consecutive Hours, Continuous Positive Airway Pressure (ICD-10-PCS; 2017-06-29)
PROC: 5A09457 Assistance with Respiratory Ventilation, 24-96 Consecutive Hours, Continuous Positive Airway Pressure (ICD-10-PCS; 2017-06-29)
PROC: 0BD58ZX Extraction of Right Middle Lobe Bronchus, Via Natural or Artificial Opening Endoscopic, Diagnostic (ICD-10-PCS; 2017-06-30)
PROC: 0BD98ZX Extraction of Lingula Bronchus, Via Natural or Artificial Opening Endoscopic, Diagnostic (ICD-10-PCS; 2017-06-30)
PROC: 0BD68ZX Extraction of Right Lower Lobe Bronchus, Via Natural or Artificial Opening Endoscopic, Diagnostic (ICD-10-PCS; 2017-06-30)
PROC: 0BDB8ZX Extraction of Left Lower Lobe Bronchus, Via Natural or Artificial Opening Endoscopic, Diagnostic (ICD-10-PCS; 2017-06-30)
PROC: 0BD48ZX Extraction of Right Upper Lobe Bronchus, Via Natural or Artificial Opening Endoscopic, Diagnostic (ICD-10-PCS; 2017-06-30)
PROC: 0BD88ZX Extraction of Left Upper Lobe Bronchus, Via Natural or Artificial Opening Endoscopic, Diagnostic (ICD-10-PCS; 2017-06-30)
PROC: 3E073KZ Introduction of Other Diagnostic Substance into Coronary Artery, Percutaneous Approach (ICD-10-PCS; 2017-07-03)
PROC: 5A09357 Assistance with Respiratory Ventilation, Less than 24 Consecutive Hours, Continuous Positive Airway Pressure (ICD-10-PCS; 2017-07-03)
PROC: 4A02XM4 Measurement of Cardiac Total Activity, External Approach (ICD-10-PCS; 2017-07-03)
PROC: 5A09357 Assistance with Respiratory Ventilation, Less than 24 Consecutive Hours, Continuous Positive Airway Pressure (ICD-10-PCS; 2017-07-04)
PROC: 5A09357 Assistance with Respiratory Ventilation, Less than 24 Consecutive Hours, Continuous Positive Airway Pressure (ICD-10-PCS; 2017-07-06)
PROC: 5A09357 Assistance with Respiratory Ventilation, Less than 24 Consecutive Hours, Continuous Positive Airway Pressure (ICD-10-PCS; 2017-07-07)
PROC: 5A09357 Assistance with Respiratory Ventilation, Less than 24 Consecutive Hours, Continuous Positive Airway Pressure (ICD-10-PCS; 2017-07-08)
PROC: 5A09357 Assistance with Respiratory Ventilation, Less than 24 Consecutive Hours, Continuous Positive Airway Pressure (ICD-10-PCS; 2017-07-09)
DX: A41.9 Sepsis, unspecified organism (principal); J18.0 Bronchopneumonia, unspecified organism; N17.0 Acute kidney failure with tubular necrosis; E43 Unspecified severe protein-calorie malnutrition; J96.01 Acute respiratory failure with hypoxia; J96.02 Acute respiratory failure with hypercapnia; D53.1 Other megaloblastic anemias, not elsewhere classified; J12.2 Parainfluenza virus pneumonia; E87.2 Acidosis; D69.6 Thrombocytopenia, unspecified; I50.32 Chronic diastolic (congestive) heart failure; J44.1 Chronic obstructive pulmonary disease with (acute) exacerbation; J44.0 Chronic obstructive pulmonary disease with (acute) lower respiratory infection; I11.0 Hypertensive heart disease with heart failure; F10.10 Alcohol abuse, uncomplicated; I48.91 Unspecified atrial fibrillation; E66.09 Other obesity due to excess calories; I44.7 Left bundle-branch block, unspecified; D63.8 Anemia in other chronic diseases classified elsewhere; Z68.28 Body mass index [BMI] 28.0-28.9, adult; E55.9 Vitamin D deficiency, unspecified; E87.6 Hypokalemia; R65.20 Severe sepsis without septic shock; Z87.891 Personal history of nicotine dependence; Z79.899 Other long term (current) drug therapy; Z91.030 Bee allergy status; Z83.6 Family history of other diseases of the respiratory system

== ENCOUNTER 2017-08-20 02:42 | Emergency (ER) | payer MEDICARE ==
[~2017-08-20] VITALS: Ht 175.2 cm; Wt 85.3 kg
[~2017-08-20 02:42] MED LIST changes: +CARVEDILOL25 MG PO; +LOSARTAN POTASS25 M1 PO; +NATURE'S BLEND F1 MG PO; +SPIRIVA -- 3018 MCG INH; +VITAMIN D-32000 UNIT PO; +XARE20MG PO
[2017-08-20 03:19] LABS: BASO # 0.1 10*3/uL (0.0-0.1); BASO % 0.7 % (0.0-1.0); EOS # 0.2 10*3/uL (0.0-0.4); EOS % 2.1 % (1.0-4.0); HEMATOCRIT 41.5 % (42.0-52.0); HEMOGLOBIN 13.4 g/dl (14.0-18.0); LYMPH # 1.4 10*3/uL (1.3-4.4); LYMPH % 19.2 % (27.0-41.0); MEAN CELL VOLUME 104.5 fl (80.0-94.0); MEAN CORPUSCULAR HGB 33.8 pg (27.0-31.0); MEAN CORPUSCULAR HGB CONC 32.3 g/dl (33.0-37.0); MEAN PLATELET VOLUME 10.4 fl (9.6-12.3); MONO # 0.8 10*3/uL (0.1-1.0); MONO % 11.4 % (3.0-9.0); NEUT # 4.7 10*3/uL (2.3-7.9); NEUT % 65.2 % (47.0-73.0); PLATELET COUNT AUTOMATED 205 10*3/uL (130-400); RED BLOOD COUNT 3.97 10*6/uL (4.50-5.90); WHITE BLOOD COUNT 7.2 10*3/uL (4.8-10.8)
[2017-08-20 03:28] LABS: INTERNATIONAL NORM RATIO 1.5 (2.0-3.5)
[2017-08-20 03:35] LABS: ALBUMIN 3.1 gm/dl (3.1-4.5); ALKALINE PHOSPHATASE 113 U/L (45-117); BUN 11 mg/dl (7-24); CHLORIDE 99 mmol/L (98-107); CREATININE 1.54 mg/dL (0.70-1.30); POTASSIUM 3.9 mmol/L (3.5-5.1); SGOT/AST 63 IU/L (3-35); SGPT/ALT 57 U/L (12-78); SODIUM 137 mmol/L (136-145); TOTAL PROTEIN 6.8 gm/dL (6.4-8.2)
[2017-08-20] MEDS ORDERED: CALAN SR120 MG PO (03:38)
[2017-08-20 03:48] LABS: TROPONIN I < 0.015 ng/ml (<0.045)
== END 2017-08-20 05:57 | disposition short-term general hospital (02) ==
LOC: ED 02:42
PROVIDERS: Emergency Medicine Emergency Medical Services
DX: R00.1 Bradycardia, unspecified (principal); I48.91 Unspecified atrial fibrillation; R55 Syncope and collapse; J44.9 Chronic obstructive pulmonary disease, unspecified; I10 Essential (primary) hypertension; F10.10 Alcohol abuse, uncomplicated; Z90.89 Acquired absence of other organs; Z79.899 Other long term (current) drug therapy

== ENCOUNTER 2019-01-17 11:09 | Inpatient (IN) | payer OTHER ==
[~2019-01-17] VITALS: Ht 178 cm; Wt 85.4 kg
[~2019-01-17 11:09] MED LIST changes: +CALAN SR120 MG PO
[2019-01-17 11:29] VITALS: BP 90/49
[2019-01-17 11:34] LABS: HEMATOCRIT 39.2 % (42.0-52.0); HEMOGLOBIN 12.4 g/dl (14.0-18.0); MEAN CELL VOLUME 108.3 fl (80.0-94.0); MEAN CORPUSCULAR HGB 34.3 pg (27.0-31.0); MEAN CORPUSCULAR HGB CONC 31.6 g/dl (33.0-37.0); MEAN PLATELET VOLUME 10.7 fl (9.6-12.3); PLATELET COUNT AUTOMATED 100 10*3/uL (130-400); RED BLOOD COUNT 3.62 10*6/uL (4.50-5.90); RED CELL DISTRI WIDTH 13.5 % (0-14.5); WHITE BLOOD COUNT 10.1 10*3/uL (4.8-10.8)
[2019-01-17 11:42] LABS: ACT PARTIAL THROMBO TIME 36.7 SECONDS (20.0-32.1); INTERNATIONAL NORM RATIO 1.5 (2.0-3.5)
[2019-01-17 11:48] LABS: ALBUMIN 2.5 gm/dl (3.1-4.5); ALKALINE PHOSPHATASE 99 U/L (45-117); BUN 14 mg/dl (7-24); CHLORIDE 97 mmol/L (98-107); CREATININE 1.23 mg/dL (0.70-1.30); POTASSIUM 4.1 mmol/L (3.5-5.1); SGOT/AST 32 IU/L (3-35); SGPT/ALT 21 U/L (12-78); SODIUM 135 mmol/L (136-145); TOTAL PROTEIN 6.6 gm/dL (6.4-8.2)
[2019-01-17 11:51] LABS: TROPONIN I < 0.015 ng/ml (<0.045)
[2019-01-17 11:52] LABS: PLATELET SUFFICIENCY LOW (NORMAL); TOTAL CELLS COUNTED 100 #CELLS
--- NOTE | 2019-01-17 12:05 | NUR ---
LACTIC ACID IS 3.0 DR VINES NOTIFIED.
[2019-01-17 12:33] VITALS: BP 91/51
--- NOTE | 2019-01-17 12:34 | NUR ---
PATIENT O2 DECREASED TO 4L NC AT THIS TIME HE WAS 96% ON 5LNC.
--- NOTE | 2019-01-17 13:05 | NUR ---
NOTIFIED NURSE OF PATIENT COMING TO THE FLOOR. PATIENT TAKEN TO 5TH FLOOR BY THIS NURSE.
[2019-01-17 13:07] VITALS: BP 98/56
--- NOTE | 2019-01-17 13:27 | NUR ---
BEDSIDE GIVEN TO LINA EASLEY. NO CHANGE IN PATIENT STATUS.
--- NOTE | 2019-01-17 15:00 | NUR ---
A 73, admitted to 5E, under the services of ALISSA Aguilar DO with a diagnosis of SOB. Chief complaint is SOB. Patient arrived via bed from ER. Monitor applied. Initial assessment completed. Vital signs taken and recorded. ALISSA AGUILAR DO notified of admission to the unit. Orders received. See assessment for past medical history, medications and allergies. Patient and/or family oriented to unit. [facility] visitation policy reviewed. Clothing/patient valuable form completed. LINA MCGOVERN
[2019-01-17 16:00] VITALS: BP 107/70
[2019-01-17 20:00] VITALS: BP 106/68
[2019-01-18] VITALS: BP 99/58
[2019-01-18 06:57] LABS: HEMATOCRIT 37.1 % (42.0-52.0); HEMOGLOBIN 11.8 g/dl (14.0-18.0); MEAN CELL VOLUME 110.7 fl (80.0-94.0); MEAN CORPUSCULAR HGB 35.2 pg (27.0-31.0); MEAN CORPUSCULAR HGB CONC 31.8 g/dl (33.0-37.0); MEAN PLATELET VOLUME 10.9 fl (9.6-12.3); PLATELET COUNT AUTOMATED 103 10*3/uL (130-400); RED BLOOD COUNT 3.35 10*6/uL (4.50-5.90); RED CELL DISTRI WIDTH 13.3 % (0-14.5); WHITE BLOOD COUNT 7.5 10*3/uL (4.8-10.8)
[2019-01-18 07:05] LABS: ALBUMIN 2.1 gm/dl (3.1-4.5); BUN 19 mg/dl (7-24); CHLORIDE 100 mmol/L (98-107); CHOLESTEROL 81 mg/dL (<200); CREATININE 0.97 mg/dL (0.70-1.30); POTASSIUM 4.3 mmol/L (3.5-5.1); SGOT/AST 20 IU/L (3-35); SGPT/ALT 19 U/L (12-78); SODIUM 136 mmol/L (136-145); TOTAL PROTEIN 6.2 gm/dL (6.4-8.2)
[2019-01-18 07:12] LABS: ALKALINE PHOSPHATASE 82 U/L (45-117); HDL CHOLESTEROL 22 mg/dl (40-60); LDL CHOLESTEROL 40 mg/dL (9-159); TRIGLYCERIDES 94 mg/dl (<150); VLDL CHOLESTEROL 19 mg/dL (6-40)
[2019-01-18 07:44] LABS: ACT PARTIAL THROMBO TIME 37.3 SECONDS (20.0-32.1); INTERNATIONAL NORM RATIO 1.2 (2.0-3.5)
[2019-01-18 07:57] LABS: TOTAL CELLS COUNTED 100 #CELLS
[2019-01-18 07:58] LABS: PLATELET SUFFICIENCY LOW (NORMAL)
[2019-01-18 08:00] VITALS: BP 91/57
--- NOTE | 2019-01-18 10:57 | NUR ---
Occupational Therapy evaluation completed on 5 with full eval to follow. Precautions include fall risk;unsteady at times in standing, impaired ADls in standing, no assistive device used, low complexity level 90392. Recommend OT per POC and home with girlfriend and home health SN,OT,PT. Thank you Rosalee Mathis OTR/L
--- NOTE | 2019-01-18 10:57 | NUR ---
PHYSICAL THERAPY Physical therapy evaluation completed, 5E. Full details and evaluation to follow. Low complexity determined after evaluation/chart review, [id number]. PT to work on gait, balance, safety, strength and endurance. Recommending home health at discharge. Thank you Raina Sue, PT, DPT
--- NOTE | 2019-01-18 11:44 | NUR ---
PT [facility]. SUE AT [facility] MADE AWARE. [facility] WILL CONTINUE FOLLOW.
[2019-01-18 12:00] VITALS: BP 91/47
--- NOTE | 2019-01-18 12:29 | NUR ---
Director Student [employer] in to talk to patient. Patient states lives at HOME with GIRLFRIEND. There are FEW steps in the home. Physician: DARIEL Pharmacy: [facility] [place] health services: NONE Patient's level of ADLs: INDEPENDENT Patient has working utilities: YES DME: NONE Follow-up physician's appointment after d/c: WILL BE MADE BY HOSPITALIST NURSE DIRECTOR ON DISCHARGE Does patient want to access PORTAL?: NO Discharge plan PT LIVES AT HOME WITH HIS GIRLFRIEND AND WILL BE INDEPENDENT IN HIS CARE. DENIES HE WILL HAVE ANY NEEDS ON DISCHARGE. PLANS TO RETURN HOME WHEN MEDICALLY STABLE. WILL CONTINUE TO FOLLOW. WILL HAVE A RIDE HOME.. DEVIN GANT
[2019-01-18 13:00] VITALS: BP 92/54
[2019-01-18 16:00] VITALS: BP 95/61
[2019-01-18 20:00] VITALS: BP 102/53
[2019-01-19] VITALS: BP 104/56
--- NOTE | 2019-01-19 00:43 | NUR ---
24HR CHART CHECK COMPLETED.
[2019-01-19 07:56] VITALS: BP 96/56
[2019-01-19 12:00] VITALS: BP 101/54
[2019-01-19 16:00] VITALS: BP 110/56
[2019-01-19 20:00] VITALS: BP 102/57
--- NOTE | 2019-01-19 20:00 | NUR ---
PT LYING IN BED, ALERT ORIENTED AND PLEASANT. VISITOR AT BEDSIDE. PT DENIES SOB AT THIS TIME, RESPIRATIONS EASY AND UNLABORED AT REST ON 2L NC. NO COMPLAINTS VOICED AT THIS TIME. WHITE BOARD UPDATED. SAFETY MEASURES IN PLACE. CALL LIGHT IN REACH.
[2019-01-19 21:33] VITALS: BP 106/52
[2019-01-20] VITALS: BP 104/64
[2019-01-20 07:45] LABS: HEMATOCRIT 36.8 % (42.0-52.0); HEMOGLOBIN 11.3 g/dl (14.0-18.0); MEAN CELL VOLUME 112.2 fl (80.0-94.0); MEAN CORPUSCULAR HGB 34.5 pg (27.0-31.0); MEAN CORPUSCULAR HGB CONC 30.7 g/dl (33.0-37.0); MEAN PLATELET VOLUME 10.7 fl (9.6-12.3); PLATELET COUNT AUTOMATED 118 10*3/uL (130-400); RED BLOOD COUNT 3.28 10*6/uL (4.50-5.90); RED CELL DISTRI WIDTH 13.3 % (0-14.5); WHITE BLOOD COUNT 6.9 10*3/uL (4.8-10.8)
[2019-01-20 08:09] LABS: BUN 19 mg/dl (7-24); CHLORIDE 100 mmol/L (98-107); POTASSIUM 3.9 mmol/L (3.5-5.1); SODIUM 139 mmol/L (136-145)
[2019-01-20 08:10] LABS: CREATININE 0.82 mg/dL (0.70-1.30)
[2019-01-20 08:28] LABS: TOTAL CELLS COUNTED 100 #CELLS
[2019-01-20 08:29] LABS: PLATELET SUFFICIENCY LOW (NORMAL); STOMATOCYTE FEW
--- NOTE | 2019-01-20 08:34 | NUR ---
pt assessed for home oxygen. pt qualified pt at rest spo2 89-90% ra, hr 67, rr 16, b/p 104/64 pt ambulated spo2 88% placed pt on 2lnc, spo2 89-90% increased to 3lnc, pt continued to ambulate spo2 93-95% on 3lnc pt at rest spo2 93%, hr 77, rr 18, b/p 130/70 rn notified and notified
[2019-01-20 12:00] VITALS: BP 101/67
[2019-01-20] MEDS ORDERED: ZITHROMAX250 MG PO (13:12)
[2019-01-20] MEDS ORDERED: PREDNISONE10 MG PO (13:12)
--- NOTE | 2019-01-20 14:25 | NUR ---
Discharge instructions reviewed with patient/family. Patient receptive and verbalizes understanding. Follow-up care arranged. Written instructions given to patient/family. MARIANNE GRAVES
== END 2019-01-20 14:25 | disposition home or self-care (01) | DRG 189 ==
LOC: ED 11:09 → 5E 12:48 → EDHOLD 12:48 → 5E 12:56
PROVIDERS: Emergency Medicine; Hospitalist; Internal Medicine; ADMIT Internal Medicine
DX: J96.01 Acute respiratory failure with hypoxia (principal); E43 Unspecified severe protein-calorie malnutrition; J44.1 Chronic obstructive pulmonary disease with (acute) exacerbation; I50.32 Chronic diastolic (congestive) heart failure; R17 Unspecified jaundice; J44.0 Chronic obstructive pulmonary disease with (acute) lower respiratory infection; I48.21 Permanent atrial fibrillation; E87.1 Hypo-osmolality and hyponatremia; E87.2 Acidosis; E86.0 Dehydration; F10.10 Alcohol abuse, uncomplicated; I11.0 Hypertensive heart disease with heart failure; D53.9 Nutritional anemia, unspecified; E87.8 Other disorders of electrolyte and fluid balance, not elsewhere classified; R73.9 Hyperglycemia, unspecified; D47.3 Essential (hemorrhagic) thrombocythemia; E83.42 Hypomagnesemia; J20.9 Acute bronchitis, unspecified; Z79.01 Long term (current) use of anticoagulants; Z88.8 Allergy status to other drugs, medicaments and biological substances; Z68.27 Body mass index [BMI] 27.0-27.9, adult

== ENCOUNTER 2019-08-27 18:09 | Inpatient (IN) | payer MEDICARE ==
[~2019-08-27] VITALS: Ht 175.2 cm; Wt 92.7 kg
[~2019-08-27 18:09] MED LIST changes: +PREDNISONE10 MG PO; +ZITHROMAX250 MG PO
[2019-08-27 18:33] VITALS: BP 117/68
[2019-08-27 20:23] LABS: BASO % 0.2 % (0.0-1.0); EOS % 0.3 % (1.0-4.0); HEMATOCRIT 32.9 % (42.0-52.0); LYMPH # 0.6 10*3/uL (1.3-4.4); LYMPH % 9.6 % (27.0-41.0); MEAN CELL VOLUME 101.5 fl (80.0-94.0); MEAN CORPUSCULAR HGB CONC 33.4 g/dl (33.0-37.0); MEAN PLATELET VOLUME 9.5 fl (9.6-12.3); MONO # 0.6 10*3/uL (0.1-1.0); MONO % 10.3 % (3.0-9.0); NEUT # 4.5 10*3/uL (2.3-7.9); NEUT % 79.1 % (47.0-73.0); PLATELET COUNT AUTOMATED 85 10*3/uL (130-400); RED BLOOD COUNT 3.24 10*6/uL (4.50-5.90); RED CELL DISTRI WIDTH 13.2 % (0-14.5); WHITE BLOOD COUNT 5.7 10*3/uL (4.8-10.8)
[2019-08-27 20:35] LABS: INTERNATIONAL NORM RATIO 1.5 (2.0-3.5)
[2019-08-27 20:52] LABS: ALBUMIN 3.1 gm/dl (3.1-4.5); ALKALINE PHOSPHATASE 126 U/L (45-117); BUN 14 mg/dl (7-24); CHLORIDE 86 mmol/L (98-107); CREATININE 1.15 mg/dL (0.70-1.30); POTASSIUM 4.3 mmol/L (3.5-5.1); SGOT/AST 48 IU/L (3-35); SGPT/ALT 32 U/L (12-78); SODIUM 121 mmol/L (136-145); TOTAL PROTEIN 6.9 gm/dL (6.4-8.2)
[2019-08-27 20:55] LABS: TROPONIN I < 0.015 ng/ml (<0.045)
--- NOTE | 2019-08-27 21:40 | NUR ---
PT SIGNIFICANT OTHER WEANTED TO LEAVE NUMBER WSITH THE CHART. [phone]. GABRIEL JAY.
[2019-08-27 22:32] VITALS: BP 130/58
--- NOTE | 2019-08-27 22:32 | NUR ---
REFSUING WOUND DOCUMENTATION
[2019-08-27 22:39] VITALS: BP 126/69
--- NOTE | 2019-08-27 22:39 | NUR ---
Time: 2239 A 73 year old MALE admitted to 5E under services of ARNEL PEÑA DO. Pt. arrived via stretcher from ER. Chief complaint: SHORTNESS OF BREATH. GASTON MARQUSI
--- NOTE | 2019-08-27 23:00 | NUR ---
MED REC UPDATED TO THE BEST OF PATIENT'S KNOWLEDGE. DAUGHTER WILL HAVE TO VERIFY MEDICATIONS IN THE MORNING
--- NOTE | 2019-08-27 23:19 | NUR ---
DR MARRUFO'S ANSWERING SERVICE AWARE OF CONSULT
[2019-08-27] MEDS ORDERED: AMIODARONE HYD200 MG PO (23:32)
[2019-08-27] MEDS ORDERED: VITAMIN D350 MC1 PO (23:32)
[2019-08-27] MEDS ORDERED: GOOD NEIGHBOR P20 MG PO (23:33)
--- NOTE | 2019-08-27 23:34 | NUR ---
S/O CALLED IN AND UPDATED MED REC. ALSO STATES THAT PATIENT DRINKS WHISKEY FROM THE TIME HE WAKES UP UNTIL HE FALLS ASLEEP AT NIGHT. DR FARR UPDATED
--- NOTE | 2019-08-28 04:37 | NUR ---
CATALINA RUIZ [id number] Please refer to the physician's history and physical for past medical history, comorbid conditions, and allergies. Diagnosis: HYPONATREMIA PNEUMONIA Mark Score: 15,AT RISK WOUND DESCRIPTIONS: Patient has several areas of intact scabbed areas noted. Patient states he will care for these areas when he returns home. No drainage at time of assessment. Patient has areas located to right arm, left arm, right lower extremity, left lower extremity and back at time of assessment. Surface the patient is resting on: Isoflex SKIN PREVENTION RECOMMENDATION: 1. Pressure redistribution support surface as appropriate 2. Elevate heels 3. Remove boots/TEDS every shift and reapply 4. Head of bed 30 degrees as tolerated 5. Assess nutrition and hydration 6. Manage moisture 7. Avoid the use of containment devices while in bed 8. Use absorptive products on surfaces limit layers of linens on bed 9. Turn and reposition every 1-2 hours in bed and every 1 hour in chair as tolerated 10. Weight shifts every 15 minutes while up in chair 11. Offloading with pillows or device to keep heels elevated off bed 12. Monitor skin at least every shift 13. Inspect under medical devices twice a day WOUND TREATMENT RECOMMENDATIONS: Patient states he will care for these areas when he returns home and doesn't need to follow up in an outpatient setting at this time.
[2019-08-28 06:43] LABS: BASO % 0.4 % (0.0-1.0); EOS % 0.5 % (1.0-4.0); HEMATOCRIT 30.7 % (42.0-52.0); LYMPH # 0.6 10*3/uL (1.3-4.4); LYMPH % 10.5 % (27.0-41.0); MEAN CORPUSCULAR HGB 34.9 pg (27.0-31.0); MEAN CORPUSCULAR HGB CONC 34.2 g/dl (33.0-37.0); MONO # 0.8 10*3/uL (0.1-1.0); MONO % 13.5 % (3.0-9.0); NEUT # 4.2 10*3/uL (2.3-7.9); NEUT % 74.2 % (47.0-73.0); PLATELET COUNT AUTOMATED 84 10*3/uL (130-400); RED BLOOD COUNT 3.01 10*6/uL (4.50-5.90); RED CELL DISTRI WIDTH 13.1 % (0-14.5); WHITE BLOOD COUNT 5.7 10*3/uL (4.8-10.8)
[2019-08-28 06:50] LABS: BUN 14 mg/dl (7-24); CHLORIDE 87 mmol/L (98-107); CREATININE 1.14 mg/dL (0.70-1.30); POTASSIUM 4.1 mmol/L (3.5-5.1); SODIUM 124 mmol/L (136-145)
--- NOTE | 2019-08-28 07:54 | NUR ---
Occupational therapy orders and nursing screen received. Will follow up with patient for completion of an OT evaluation. Thank you. Zoila Tyler, OTR/L
[2019-08-28 08:00] VITALS: BP 110/65
--- NOTE | 2019-08-28 08:56 | NUR ---
PHYSICAL THERAPY Physical Therapy evaluation completed on 5E with full evaluation to follow. Moderate complexity PT evaluation per chart review and evaluation, [id number]. Recommend physical therapy per plan of care and SNF upon discharge. Thank you for this referral. Jaimie Blank,PT,DPT
--- NOTE | 2019-08-28 10:25 | NUR ---
CLOTH MEASURER faxed new referral to [facility]. Will need PT Eval to complete referral. Patient will be required 3 night stay pending acceptance.
--- NOTE | 2019-08-28 10:36 | NUR ---
Occupational Therapy evaluation completed on 5E with full evaluation to follow. Recommend occupational therapy per plan of care and SNF upon discharge due to safety concerns and lack of caregiver support. Thank you for this referral. Natalya Fishman OTR/L
--- NOTE | 2019-08-28 10:40 | NUR ---
case management received a call from patient's daughter Beth regarding patient being referred to a short term detention for rehab. Beth stated she did not want her father to go to a detention, she stated she is a director of a home health company and is working from home, she will have her father stay with her and order the home health for nursing and therapy at home. case management will confirm with patient that this is what he wants his discharge plan to be
[2019-08-28 11:56] VITALS: BP 113/70
--- NOTE | 2019-08-28 12:21 | NUR ---
Merchandise Examiner in to talk to patient. Patient states lives at HOME with FRIEND. There are 10 steps in the home. Physician: DARIEL [place]acy: [place] health services: NONE Patient's level of ADLs: INDEPENDENT Patient has working utilities: YES DME: [facility] Follow-up physician's appointment after d/c: WILL BE MADE BY HOSPITALIST NURSE DIRECTOR ON DISCHARGE Does patient want to access PORTAL?: NO Discharge plan PT LIVES AT HOME WITH FRIEND. PT WAS IN ROOM AT TIME OF VISIT AND STATES PT IS VERY UNSTEADY WITH [facility]. THEY SUGGEST SNF PRIOR TO GOINT HOME. PT IS AGREEING TO SNF STAY. FIRST CHOICE IS [facility], SECOND CHOICE IS [facility]. WILL MAKE REFFERAL. WILL CONTINUE TO FOLLOW. . DEVIN GANT
[2019-08-28 13:25] LABS: BUN 14 mg/dl (7-24); CHLORIDE 87 mmol/L (98-107); CREATININE 1.18 mg/dL (0.70-1.30); SODIUM 125 mmol/L (136-145)
[2019-08-28 15:57] VITALS: BP 107/55
[2019-08-28 17:04] LABS: BUN 14 mg/dl (7-24); CHLORIDE 89 mmol/L (98-107); CREATININE 1.08 mg/dL (0.70-1.30); POTASSIUM 3.9 mmol/L (3.5-5.1); SODIUM 127 mmol/L (136-145)
[2019-08-28 20:00] VITALS: BP 109/62
--- NOTE | 2019-08-28 20:15 | NUR ---
IN TO ASSESS PATIENT. PATIENT RESTING IN BED AT THIS TIME. NO COMPLAINTS. 2L NC INTACT WHICH HE WEARS AT HOME. PATIENT STATES HE'S MILDLY SHORT OF BREATH WHEN HE GETS UP TO WALK, BUT IT'S NOT TERRIBLE. HE ALSO STATED THAT HE'S WEAK AND THAT HIS DAUGHTER HAS PEOPLE SET UP TO COME TO HIS HOUSE TO HELP HIM GET STRONGER. CALL LIGHT WITHIN REACH, WILL MONITOR
[2019-08-29] VITALS (8 sets, daily range): BP systolic 88–124; BP diastolic 50–77
--- NOTE | 2019-08-29 00:33 | NUR ---
24 HR chart check completed.
--- NOTE | 2019-08-29 02:30 | NUR ---
PATIENT SITTING UP ON SIDE OF BED. CANNULA INTACT. NO DISTRESS NOTED. PATIENT VOICES NO COMPLAINTS AT THIS TIME. CALL LIGHT WITHIN REACH, WILL MONITOR
[2019-08-29 07:28] LABS: ALBUMIN 2.8 gm/dl (3.1-4.5); BUN 15 mg/dl (7-24); CHLORIDE 89 mmol/L (98-107); CREATININE 1.23 mg/dL (0.70-1.30); POTASSIUM 3.8 mmol/L (3.5-5.1); SGOT/AST 40 IU/L (3-35); SGPT/ALT 25 U/L (12-78); SODIUM 127 mmol/L (136-145)
[2019-08-29 07:30] LABS: ALKALINE PHOSPHATASE 109 U/L (45-117); TOTAL PROTEIN 6.2 gm/dL (6.4-8.2)
--- NOTE | 2019-08-29 07:30 | NUR ---
TOOK OVER CARE OF PT AT THIS TIME. PT LYING IN BED, SLEEPING. RESPIRATIONS ARE EASY AND UNLABORED AT THIS TIME. SAFETY MEASURES IN PLACE. CALL LIGHT IN REACH.
[2019-08-29 07:35] LABS: BASO % 0.4 % (0.0-1.0); EOS # 0.1 10*3/uL (0.0-0.4); EOS % 1.1 % (1.0-4.0); HEMATOCRIT 32.3 % (42.0-52.0); LYMPH # 0.6 10*3/uL (1.3-4.4); LYMPH % 13.1 % (27.0-41.0); MEAN CELL VOLUME 104.5 fl (80.0-94.0); MEAN CORPUSCULAR HGB 33.7 pg (27.0-31.0); MEAN CORPUSCULAR HGB CONC 32.2 g/dl (33.0-37.0); MEAN PLATELET VOLUME 10.3 fl (9.6-12.3); MONO # 0.7 10*3/uL (0.1-1.0); MONO % 14.4 % (3.0-9.0); NEUT # 3.3 10*3/uL (2.3-7.9); NEUT % 70.6 % (47.0-73.0); PLATELET COUNT AUTOMATED 83 10*3/uL (130-400); RED BLOOD COUNT 3.09 10*6/uL (4.50-5.90); RED CELL DISTRI WIDTH 13.3 % (0-14.5); WHITE BLOOD COUNT 4.7 10*3/uL (4.8-10.8)
--- NOTE | 2019-08-29 10:31 | NUR ---
KEYANNA RECEIVED PHONE CALL FROM PATIENTS DAUGHTER EMORY. SHE STATED AGAIN THAT SHE DOES NOT WANT THE PATIENT TO GO TO A SNF. SHE STATED THAT THE PATIENT DOES HAVE SOME DEPRESSION AND WITH EVERYTHING GOING ON SHE DOES NOT THINK IT WOULD BE GOOD FOR HIS MENTAL HEALTH. SHE STATED SHE RUNS [facility] FA[facility] [phone], AND LONG THE PATIENT IS AGREEABLE HE CAN GO HOME WITH HER AND 24/HR CARE. WILL DISCUSS THIS WITH TUFTER AND PATIENT.
--- NOTE | 2019-08-29 10:45 | NUR ---
PT MEDS HELD AT THIS TIME DUE TO NPO STATUS FOR ULTRASOUND OF ABDOMEN. PT LEAVING FLOOR AT THIS TIME TO HAVE TEST DONE. WILL CATCH PT UP ON MEDS WHEN HE RETURNS.
--- NOTE | 2019-08-29 11:56 | NUR ---
PT RETURNS FROM ULTRASOUND. WILL CATCH PT UP ON MEDS AT THIS TIME.
--- NOTE | 2019-08-29 12:00 | NUR ---
PHYSICAL THERAPY Patient seen this pm 1;1 for therapy visit and was standing at sink in bathroom with Nurse upon therapist arrival. Patient identified by name / and presented with continuos O2-1L via NC. OT assistant auditor was also present this session for observation only as patient ambulated 15'x 1 to EOB sit, use of wh walker standing support, CGA x 1. Patient was able to perform seated B LE therex, including marching / LAQ, x 10 reps each without c/o. Patient performed sit to stand CGA, needing v/c for proper hand placement, then ambulated additional 35'x 1, wh walker, CGA, while demonstrating slow diego, decreased stride and bouts of unsteady gait pattern, especially during all 90/180 turns. Patient returned to EOB sit with mild fatigue and remained with call light, tray table, telephone and bed alarm for safety. Will continue per POC as tolerated, total treatment time 16 minutes. aTiwo Girard, DOCUMENT MANAGEMENT ANALYST
--- NOTE | 2019-08-29 12:17 | NUR ---
OT NOTE Pt was seen this P.M. 1:1 for 17 minute OT session. Upon arrival pt was sitting upright on the EOB. Pt identified by name and and had no complaints at this time. Pt presented to therapy with continuous 1L-O2 via NC which he remained on throughout the entire session. Sit to stand completed from bed level with CGA for safety followed by functional mobility to the bathroom with CGA and use of w/w for UE support. There he transferred on/off standard commode with CGA and use of grab bar for UE support. Clothing management completed with CGA and toilet hygiene completed with supervision while seated. Pt then stood sink side while washing his hands with CGA for safety. While standing sink side without UE support pt had one LOB that occured backwards requiring Mehran to correct. Pt presented with poor safety while navigating the walker in tight spaces/turns, managing O2 line, and stepping backwards. Educated pt on safety concerns and pt continued with poor carry over. Functional mobility was then completed back to the EOB where he was left sitting upright with call light in hand, tray table in place, and bed alarm activated for safety. Continue with POC as indicated. LORI Stein/Valerio
--- NOTE | 2019-08-29 12:25 | NUR ---
NOTIFIED DR SAUL OF BP OF 88/50, HR 84. OKAY GIVEN TO GIVE PT LASIX. ORDERS GIVEN TO HOLD COREG AT THIS TIME.
--- NOTE | 2019-08-29 13:12 | NUR ---
LEASING SPECIALIST SPOKE WITH THE PATIENT ABOUT GOING TO HIS DAUGHTER EMORY'S HOME. PATIENT IS AGREEABLE REFERRAL WILL BE SENT TO [facility] [phone].
--- NOTE | 2019-08-29 15:46 | NUR ---
Nutritional Support Services Note: Appetite is good for meals. Pt is eating 100% of meals. Cardiac diet as ordered with scabs and scraches noted. No nutrition intervention needed at this time. Staff to encourage intake. Will follow if needed. Janelle Ferrer Rdn Ld
--- NOTE | 2019-08-29 17:12 | NUR ---
EVENING MEDICATIONS TAKEN AT THIS TIME. PT DENIES ANY DISTRESS. RESPIRATIONS EASY AND UNLABORED. BP 102/52 MANUALLY. [address] ME[address] PL[address]. CALL LIGHT IN REACH.
--- NOTE | 2019-08-29 22:30 | NUR ---
PATIENT SITTING UP ON SIDE OF BED READING THE PAPER. NO DISTRESS NOTED. WILL CONTINUE TO MONITOR
--- NOTE | 2019-08-29 23:49 | NUR ---
NOTIFIED DR. FARR OF PATIENTS BLOOD PRESSURE AT THIS TIME. NOTIFIED HIM PATIENT RECIEVED AMIODARONE, LIBRIUM AND COREG AT 2230. ALSO NOTIFIED HIM THAT PATIENTS BLOOD PRESSURE DROPPED THIS AM AND THEY HELD HIS COREG. PATIENTS BLOOD PRESSURE AT THIS TIME IS 84/52. PATIENT WAS SLEEPING IN BED. NOTIFIED HIM THAT PATIENT AN HOUR AGO WAS SITTING ON THE SIDE OF THE BED READING THE PAPER. HE STATED TO JUST KEEP AN EYE ON THE PATIENT AND IF HIS BLOOD PRESSURE GOES ANY LOWER TO GIVE HIM A CALL BACK
[2019-08-30] VITALS (7 sets, daily range): BP systolic 80–107; BP diastolic 46–64
--- NOTE | 2019-08-30 01:36 | NUR ---
PATIENT SITTING ON THE SIDE OF THE BED. NO DISTRESS NOTED. BP 90/60 AT THIS TIME. PATIENT STATES HIS DAUGHTER MAKES HIM DRINK ICE WATER TO HELP BRING HIS BLOOD PRESSURE UP AND IT COMES RIGHT UP.PATIENT REQUESTING ICE WATER. CALL LIGHT WITHIN REACH, WILL MONITOR
--- NOTE | 2019-08-30 02:30 | NUR ---
PATIENTS BLOOD PRESSURE RECHECKED AGAIN AT THIS TIME. PATIENT STATED THAT THIS BLOOD PRESSURE ISN'T BAD FOR HIM. BUT HE STATES TO CHECK IT AGAIN IN THE MORNING.
--- NOTE | 2019-08-30 06:42 | NUR ---
NOTIFIED DR. FARR OF PATIENTS BLOOD PRESSURE BEING 82/54. PATIENT HAS LIBRIUM DUE. HE STATED TO HAVE THE MORNING NURSE CHECK HIS PRESSURE AT 8AM AND SEE WHAT IT IS, BUT JUST HOLD THE LIBRIUM UNTIL WE GET A NEW PRESSURE THEN
[2019-08-30 06:49] LABS: BASO % 0.4 % (0.0-1.0); EOS # 0.1 10*3/uL (0.0-0.4); EOS % 1.4 % (1.0-4.0); HEMATOCRIT 30.5 % (42.0-52.0); LYMPH # 0.9 10*3/uL (1.3-4.4); LYMPH % 17.8 % (27.0-41.0); MEAN CELL VOLUME 105.5 fl (80.0-94.0); MEAN CORPUSCULAR HGB 34.3 pg (27.0-31.0); MEAN CORPUSCULAR HGB CONC 32.5 g/dl (33.0-37.0); MONO # 0.8 10*3/uL (0.1-1.0); NEUT # 3.1 10*3/uL (2.3-7.9); NEUT % 62.4 % (47.0-73.0); PLATELET COUNT AUTOMATED 80 10*3/uL (130-400); RED BLOOD COUNT 2.89 10*6/uL (4.50-5.90); RED CELL DISTRI WIDTH 13.3 % (0-14.5); WHITE BLOOD COUNT 4.9 10*3/uL (4.8-10.8)
[2019-08-30 07:06] LABS: ALBUMIN 2.7 gm/dl (3.1-4.5); CREATININE 1.4 mg/dL (0.70-1.30)
--- NOTE | 2019-08-30 07:52 | NUR ---
SPOKE WITH PT FRIEND GABRIEL CORDOVA REGARDING AN UPDATE ON PT. PT FRIEND STATES THAT PT STARTED TAKING AMIODARONE 2-3 MONTHS AGO AND SINCE THEN HIS BLOOD PRESSURE HAS BEEN RUNNING ON THE LOWER END. WILL NOTIFY THE PHYSICIANS OF THIS. WILL CONTINUE TO MONITOR PT. CALL LIGHT IN REACH FOR PT.
--- NOTE | 2019-08-30 10:20 | NUR ---
OT NOTE Pt was seen this A.M. 1:1 for 25 minute OT session. Upon arrival pt was supine in bed. Pt identified by name and and had no complaints at this time. Pt presented to therapy with continuous 1L-O2 via NC which he remained on throughout the entire session, pt's resting SpO2 was 98%. Pt transferred supine to sit EOB with SBA while utilizing bed rail for UE support. While seated EOB pt donned B socks VA. Sit to stand completed from bed level with SBA and use of w/w for UE support followed by functional mobility around the room while gathering ADL supplies with CGA and use of w/w due to poor safety awareness. Pt required mod verbal and tactile prompts for safety with the walker, safety with turning, O2 line management, and stepping backwards pt continued to present with poor carry over increasing risk of falls. Pt then transferred on/off standard commode with SBA and use of grab bar for UE support, clothing management and toilet hygiene completed with SBA. Pt then stood sink side while completing grooming task consisting of washing his hands, face, oral, and hair care with CGA for safety due to bouts of retrograde posture while standing without UE support that required Mehran to correct. Pt tolerated standing sink side for aprox 4-5 minutes at a time before sitting due to fatigue. Functional mobility was then completed back to the recliner again with poor safety carryover where he was left sitting upright with call light in hand, tray table in place, and phone in reach. Continue with POC as able. LORI Stein/Valerio
--- NOTE | 2019-08-30 10:27 | NUR ---
DR SAUL NOTIFIED OF PT MANUAL BP OF 98/60, HR 90. NEW ORDERS RECEIVED TO D/C LIBRIUM, PT IS NOT SHOWING S/S OF ALCOHOL WITHDRAWAL. WILL CONTINUE TO MONITOR FOR THIS. ORDERS ALSO RECEIVED TO D/C LASIX 4O DAILY IV, CHANGE DOSAGE OF COREG PO FROM 25 MG TO 12.5 MG. ORDERS RECEIVED TO GIVE DOSAGE OF 12.5 MG COREG PO AT THIS TIME WHEN MED IS PROFILED BY PHARMACY. WILL UPDATE PT OF THESE CHANGES. DR SAUL ALSO NOTIFIED THAT PT FRIEND GABRIEL CORDOVA STATES THAT PT BLOOD PRESSURE HAS BEEN RUNNING LOW SINCE HE STARTED TAKING AMIODARONE 200 MG AT HS.
--- NOTE | 2019-08-30 12:45 | NUR ---
Physical Therapy Pt approached by PT this AM with patient sitting in BS chair. Pt stated he was waiting for his lunch, however agreed to complete therex and ambulation. Pt completed arom therex in sitting x 15 reps including LAQ, Hip flexion, and AP without c/o. Pt rested than transferred from sitting to standing with Min A x1 and ambulated with wheeled walker x 30' x1 with Min A x1 and verbal cues to increase step length with confined area of walking. Pt ambulated back to BS chair upon the completion of therapy. Pt received verbal cues for proper position with sitting and standing. Dr. Locke approached pt when OIL SPRAYING MACHINE OPERATOR was in room. Pt's therapy session x 15 minutes with all being 1:1 time with therapist. Christa Johnson PTA
--- NOTE | 2019-08-30 13:45 | NUR ---
PULSE OX ON R/A AT REST 88%. HEART RATE 90. PULSE OX ON 2L AT REST 99%. PT. AMBULATED IN THE [place] ON 2L, PULSE OX WAS 93%, PT. REQUESTED TO GO BACK TO ROOM AFTER APPRX. 50 FT. DUE TO WEAKNESS IN HIS LEGS. PT. RETURNED TO ROOM RESTING AT BEDSIDE WITH CALL LIGHT AT HIS SIDE. PULSE OX ON 2L, RECOVERY WAS 98%. HEART RATE 95. DR. SAUL NOTIFIED OF RESULTS. PT. STATES HE HAS HOME O2 AND PORTABLE ALSO. B/P 99/54.
--- NOTE | 2019-08-30 14:07 | NUR ---
CALLED DAUGHTER SAIRA AND ASK HER IF PT HAD OXYGEN AT HOME, SHE STATES HE DOES. SHE IS NOT SURE OF COMPANY NAME. ASK HER IF HE HAD PORTABLE TANKS THAT COULD BE BROUGHT TO THE HOSPITAL FOR DISCHARGE, SHE STATES HIS ROOM MATE WILL BE PICKING HIM UP AND SHE WILL BRING A PORTALBE TANK FOR DISCHARGE.
--- NOTE | 2019-08-30 14:23 | NUR ---
PT ASSISTED TO BATHROOM AT THIS TIME WITH WALKER. PT DENIES SHORTNESS OF BREATH. GAIT IS STEADY. WILL ASSIST PT BACK TO BED AND ENSURE CALL LIGHT IS IN REACH.
[2019-08-30] MEDS ORDERED: COREG12.5 M1 PO (14:51)
[2019-08-30] MEDS ORDERED: LEVAQUIN750 M1 PO (14:51)
--- NOTE | 2019-08-30 15:08 | NUR ---
OCCUPATIONAL THERAPY CO-SIGN I approve of the Occupational Therapy notes written above. Natalya Fishman OTR/L
--- NOTE | 2019-08-30 16:17 | NUR ---
Discharge instructions reviewed with patient/family. Patient receptive and verbalizes understanding. Follow-up care arranged. Written instructions given to patient/family. BAKARI RODRÍGUEZ
--- NOTE | 2019-08-30 17:00 | NUR ---
DAYA ROWDY ON [facility] NOTIFIED OF PRESCRIPTIONS THAT ARE WRITTEN FOR PATIENT. PHARMACIST STATES THAT SHE WILL PREPARE MEDS. FAMILY TO ELEVATED WORK PLATFORM OPERATOR PRESCRIPTIONS ON WAY TO ELEVATED WORK PLATFORM OPERATOR PT. DISCHARGE INSTRUCTIONS GONE OVER WITH PT DAUGHTER OVER THE PHONE.
--- NOTE | 2019-08-30 17:44 | NUR ---
PT LEAVES FLOOR VIA W/C AT THIS TIME. FAMILY IN ER REGISTRATION AREA TO BREAKFAST COOK PATIENT.
--- NOTE | 2019-09-02 07:53 | NUR ---
PHYSICAL THERAPY CO-SIGN I approve of the Phyical Therapy notes written above. Vivien Larsen PT
== END 2019-08-30 17:44 | disposition home health service (06) | DRG 291 ==
LOC: ED 18:09 → 5E 21:48 → EDHOLD 21:48 → 5E 22:09
PROVIDERS: Emergency Medicine; Family Medicine; Hospitalist; Internal Medicine; ADMIT Internal Medicine
DX: I11.0 Hypertensive heart disease with heart failure (principal); J18.9 Pneumonia, unspecified organism; J96.01 Acute respiratory failure with hypoxia; N17.0 Acute kidney failure with tubular necrosis; J44.0 Chronic obstructive pulmonary disease with (acute) lower respiratory infection; E87.1 Hypo-osmolality and hyponatremia; R17 Unspecified jaundice; E46 Unspecified protein-calorie malnutrition; I50.33 Acute on chronic diastolic (congestive) heart failure; R73.9 Hyperglycemia, unspecified; R74.0 Nonspecific elevation of levels of transaminase and lactic acid dehydrogenase [LDH]; D53.9 Nutritional anemia, unspecified; I48.91 Unspecified atrial fibrillation; F10.20 Alcohol dependence, uncomplicated; Y90.9 Presence of alcohol in blood, level not specified; Z87.891 Personal history of nicotine dependence; Z83.6 Family history of other diseases of the respiratory system; Z79.899 Other long term (current) drug therapy; Z79.01 Long term (current) use of anticoagulants; Z88.8 Allergy status to other drugs, medicaments and biological substances; Z91.030 Bee allergy status; Z68.32 Body mass index [BMI] 32.0-32.9, adult